=== PATIENT | male | born 1960 | race Caucasian/White ===

== ENCOUNTER 2020-09-25 12:38 | Outpatient (REF) | payer OTHER, SELFPAY | END 2020-09-25 12:39 | disposition home or self-care (01) | LOC: HO.LAB 12:38 | PROVIDERS: Visit Provider Internal Medicine | DX: Z20.828 Contact with and (suspected) exposure to other viral communicable diseases (principal) | CPT/HCPCS: C9803; U0003 ==

== ENCOUNTER 2020-10-10 11:55 | Outpatient (REF) | payer OTHER, SELFPAY ==
--- NOTE | 2020-10-10 12:00 | XR_ITS ---
EXAMINATION: XR SHOULDER, BILATERAL CLINICAL INFORMATION: Enthesopathy COMPARISON: None TECHNIQUE: 4 views of each shoulder FINDINGS: 4 views of the left shoulder do not demonstrate any evidence of acute fracture or dislocation. No calcific tendinitis. Glenohumeral joint appears unremarkable. No significant abnormality of the acromioclavicular joint is seen. There is no widening of the coracoclavicular space. 4 views of the right shoulder do not demonstrate any evidence of acute fracture or dislocation. No calcific tendinitis. There is some mild spurring about the glenohumeral joint with glenoid subchondral cyst inferiorly. No significant degenerative change of the acromioclavicular joint. No widening of the coracoclavicular space. XR/XR shoulder RT min 2V IMPRESSION: No significant bony abnormality or calcific tendinitis of the right or left shoulders.
--- NOTE | 2020-10-10 12:00 | XR_ITS ---
EXAMINATION: XR SHOULDER, BILATERAL CLINICAL INFORMATION: Enthesopathy COMPARISON: None TECHNIQUE: 4 views of each shoulder FINDINGS: 4 views of the left shoulder do not demonstrate any evidence of acute fracture or dislocation. No calcific tendinitis. Glenohumeral joint appears unremarkable. No significant abnormality of the acromioclavicular joint is seen. There is no widening of the coracoclavicular space. 4 views of the right shoulder do not demonstrate any evidence of acute fracture or dislocation. No calcific tendinitis. There is some mild spurring about the glenohumeral joint with glenoid subchondral cyst inferiorly. No significant degenerative change of the acromioclavicular joint. No widening of the coracoclavicular space. XR/XR shoulder LT min 2V IMPRESSION: No significant bony abnormality or calcific tendinitis of the right or left shoulders.
== END 2020-10-10 11:56 | disposition home or self-care (01) ==
LOC: HO.XRAY 11:55
PROVIDERS: PCP Physician Assistant; Visit Provider Physician Assistant
DX: M77.8 Other enthesopathies, not elsewhere classified (principal)
CPT/HCPCS: 73030

== ENCOUNTER 2021-07-16 07:31 | Outpatient (REF) | payer OTHER, SELFPAY ==
[2021-07-16 10:27] LABS: Hematocrit 44.1 % (42-52); Hemoglobin 14.9 g/dl (14.0-18.0); Mean Corpuscular HGB Conc 33.8 g/dl (31.0-36.0); Mean Corpuscular Hemoglobin 31.4 pg (27.0-33.0); Mean Platelet Volume 11.6 fL (9.4-12.4); Platelet Count 234 X10*3/uL (160-400); Red Blood Count 4.74 X10*6/uL (4.60-5.80); White Blood Count 5.4 X10*3/uL (4.8-10.8)
[2021-07-16 10:40] LABS: Alanine Aminotransferase 68 U/L (0-40); Albumin Level 4.3 g/dL (3.5-5.0); Alkaline Phosphatase 54 U/L (39-117); Anion Gap 10 (12-20); Aspartate Amino Transferase 41 U/L (5-37); Bilirubin Total 0.8 mg/dL (0.0-1.0); Blood Urea Nitrogen 13 mg/dL (9-16); Calcium 9.5 mg/dL (8.4-10.2); Carbon Dioxide 28 mmol/L (22-29); Chloride 106 mmol/L (96-108); Cholesterol 281 mg/dL; Estimated Glomerular Filt Rate > 60; Glucose Fasting 91 mg/dL (60-99); HDL Cholesterol 48 mg/dL; LDL Cholesterol Calculated 182 mg/dl; Potassium 4.4 mmol/L (3.3-5.1); Sodium 140 mmol/L (135-145); Total Protein 7.4 g/dL (6.5-8.0); Triglycerides 258 mg/dL
[2021-07-16 11:02] LABS: Estimated Average Glucose 108 mg/dL; Hemoglobin A1c % 5.4 %; Prostate Specific Antigen Scr 0.55 ng/mL (<0.05-4.0); TSH reflex Free T4 2.36 uIU/mL (0.32-4.0)
== END 2021-07-16 07:32 | disposition home or self-care (01) ==
LOC: HO.10HDL 07:31
PROVIDERS: Visit Provider Physician Assistant
DX: Z12.5 Encounter for screening for malignant neoplasm of prostate (principal); Z13.29 Encounter for screening for other suspected endocrine disorder; Z13.220 Encounter for screening for lipoid disorders; I10 Essential (primary) hypertension
CPT/HCPCS: 36415; 80053; 80061; 83036; 84153; 84443; 85027

== ENCOUNTER 2021-12-20 09:26 | Day surgery (SDC) | payer OTHER, SELFPAY ==
[2021-12-13 14:44] VITALS: BMI 28.3
--- NOTE | 2021-12-19 12:44 | P.CONAN_ITS ---
Documented by User: Mary Young NP 01/02/22 12:05 HPI - Anesthesia Eval Consult details Narrative: 61yo M for Colonoscopy [facility] Active Problems Active Problems: All Active Problems (Updated 12/13/21 @ 14:38 by Deb Wodo, RN) Left shoulder tendinitis (Acute) Right shoulder tendinitis (Acute) Folliculitis (Acute) Screening for diabetes mellitus (DM) (Acute) Screening for hypercholesterolemia (Acute) Screening for hypothyroidism (Acute) Annual physical exam (Acute) FHx: coronary artery disease (Acute) HLD (hyperlipidemia) (Acute) Fatty liver (Acute) Colon cancer screening (Acute) Past Medical History Medical History (Updated 12/13/21 @ 14:38 by Deb Wood RN) History of diverticulitis BOY on CPAP Family History Family History Father CHF (congestive heart failure) CVD (cardiovascular disease) Mother Diabetes Son Down syndrome Brother Myocardial infarction Surgical History Surgical History History of colonoscopy History of inguinal hernia repair History of sigmoidoscopy Social History Social History (Updated 07/18/21 @ 09:43 by Benjamin Fernandez PA-C) Housing: House Are you a primary patient care technician to a significant other at home: No Do you presently have visiting nurse or other home services: No Alcohol intake: current Alcohol intake frequency: a few times a month Alcohol type: beer Patient Tobacco Use Status: Never used Tobacco Second Hand Smoke Exposure: No Use of substances other than those prescribed or required for medical reasons: No Have you been hit, kicked, punched, or otherwise hurt by someone within the past year? If so, by whom?: No Are you DNR?: No Advance Directives: No Advance Directives Information Provided: No Advance Directives on File: No Recently lost weight without trying: No Eating poorly because of decreased appetite: No Nutrition Risks: No Nutritional Risk service: No Current occupational status: employed Current occupation: [employer] Meds Allergies Allergy/AdvReac Type Severity Reaction Status Date / Time No Known Allergies Allergy Verified 12/13/21 14:38 [No Known Allergies*] Home Medications Medication Instructions Recorded Confirmed Last Taken Type No Known Home Meds 12/13/21 12/13/21 Unknown History Exam Exam Date and Time: December 19, 2021 1244 Height,Weight and Vital Signs: Height 5 ft 9 in Weight 87.09 kg Pertinent Lab Results Pertinent Lab Results: Laboratory Tests 07/16/21 07/16/21 07:32 07:32 WBC 5.4 Hgb 14.9 Hct 44.1 Plt Count 234 Sodium 140 Potassium 4.4 Chloride 106 Carbon Dioxide 28 BUN 13 Creatinine 0.84 Assessment and Plan Assessment Anesthesia Assessment: Chart Reviewed Documented by User: Refugio Randolph MD 02/19/22 00:29 HPI - Anesthesia Eval Consult details Narrative: 61yo M for Colonoscopy jevonah s witness . would not like to accept blood products [facility] Past Medical History Medical History (Updated 12/13/21 @ 14:38 by Deb Wood RN) History of diverticulitis BOY on CPAP Family History Family History Father CHF (congestive heart failure) CVD (cardiovascular disease) Mother Diabetes Son Down syndrome Brother Myocardial infarction Family history of problems with anesthesia: No Surgical History Surgical History History of colonoscopy History of inguinal hernia repair History of sigmoidoscopy History of Problems with Anesthesia: No Social History Social History (Updated 07/18/21 @ 09:43 by Benjamin Fernandez PA-C) Housing: House Are you a primary patient care technician to a significant other at home: No Do you presently have visiting nurse or other home services: No Alcohol intake: current Alcohol intake frequency: a few times a month Alcohol type: beer Patient Tobacco Use Status: Never used Tobacco Second Hand Smoke Exposure: No Use of substances other than those prescribed or required for medical reasons: No Have you been hit, kicked, punched, or otherwise hurt by someone within the past year? If so, by whom?: No Are you DNR?: No Advance Directives: No Advance Directives Information Provided: No Advance Directives on File: No Recently lost weight without trying: No Eating poorly because of decreased appetite: No Nutrition Risks: No Nutritional Risk service: No Current occupational status: employed Current occupation: [employer] Meds Allergies Allergy/AdvReac Type Severity Reaction Status Date / Time No Known Allergies Allergy Verified 12/13/21 14:38 [No Known Allergies*] Home Medications Medication Instructions Recorded Confirmed Last Taken Type No Known Home Meds 12/13/21 12/13/21 Unknown History Exam Airway Mallampati Class: II TM Dist: >3cm Neck ROM: Full Partial: Upper Loose/Missing/Broken Teeth: Yes (Fillings , poor dentation ) Assessment and Plan Final Anesthetic Review Family History of Problems with Anesthesia: No History of Problems with Anesthesia: No NPO: Yes ASA Class: II Final Preanesthetic Review: Meds/Allgs Chart Reviewed and Anes Risks/Benef Reviewed Patient Risk: Intermediate Procedure Risk: Intermediate Anesthetic Plan Anesthetic Plan: MAC: Disposition: Standard PACU
[2021-12-20 09:38] VITALS: BP 152/90; PULSE 75; RESP 17; TEMP 36.6; O2SAT 100; BMI 27.0
[2021-12-20] MEDS: Lactated Ringers 1,000 ML 100 ML IVCONT (09:58)
--- NOTE | 2021-12-20 09:59 | MHC.SHP ---
Pre-Procedural Eval Section A Date of Service: 12/20/21 The patient is an INPATIENT: No Changes since office visit: No Cold of Flu in the past 2 weeks, No New Medical Problems, No Changes in Medication and No Patient answered all questions The History & Physical has been completed within 30 days and I have reviewed it.: Yes Section B Chief Complaint: Screening Allergies: Allergies Allergy/AdvReac Type Severity Reaction Status Date / Time No Known Allergies Allergy Verified 12/13/21 14:38 [No Known Allergies*] Plan I have reviewed the history and physical and performed a pertinent physical examination on my patient. No changes have occurred unless specified.
[2021-12-20 10:28] VITALS: BP 108/64; PULSE 62; RESP 20; TEMP 36.1; O2SAT 100
--- NOTE | 2021-12-20 10:30 | P.BOP_ITS ---
Brief Operative Note Date of Service: 12/20/21 Pre-op diagnosis: screening Post-op diagnosis: same Surgeon: Gucci Cole Anesthesia: MAC Was an Blood Tester Fowl used for this Procedure?: No Estimated blood loss (mL): 0 Pathology: none sent Condition: stable Disposition: PACU
[2021-12-20 10:43] VITALS: BP 113/77; PULSE 59; RESP 16; TEMP 36.1; O2SAT 98
--- NOTE | 2021-12-20 13:03 | OP_ITS ---
SURGEON: Gucci Cole MD INDICATIONS: Colon cancer screening. PREOPERATIVE DIAGNOSIS: POSTOPERATIVE DIAGNOSIS: PROCEDURE PERFORMED: Colonoscopy to the terminal ileum. ESTIMATED BLOOD LOSS: COMPLICATIONS: ANESTHESIA: Medications, monitored anesthesia care. ASSISTANTS: SPECIMENS: DESCRIPTION OF PROCEDURE: History and physical was performed. The risks and benefits of the procedure were explained to the patient. Informed consent was obtained. The patient was placed in the left lateral decubitus position. A digital rectal exam was performed and was found to be normal. The Olympus pediatric video colonoscope was introduced into the rectum and advanced to the cecum without difficulty. The cecum was identified by transillumination, palpation, and identification of ileocecal valve. Examination was performed. The scope was removed. He tolerated the procedure well, and was returned to the recovery area in stable condition. FINDINGS: The terminal ileum was examined and appeared normal. The visualized colonic mucosa was normal. The quality of prep was good. There was mild sigmoid diverticulosis. Retroflexed examination showed some small internal hemorrhoids. No polyps were identified. IMPRESSION: Normal colonoscopy. RECOMMENDATION: 1. Follow up as needed. 2. Repeat colonoscopy is recommended in 10 years for average risk individuals. MD RUTHIE Hurd/LAYLA / [id number]
== END 2021-12-20 11:01 | disposition home or self-care (01) ==
PROVIDERS: PCP Physician Assistant; Visit Provider Internal Medicine Gastroenterology
PROC: 0DJD8ZZ Inspection of Lower Intestinal Tract, Via Natural or Artificial Opening Endoscopic (ICD-10-PCS; CPT 45378; principal; 2021-12-20 10:40)
DX: Z12.11 Encounter for screening for malignant neoplasm of colon (principal); K57.30 Diverticulosis of large intestine without perforation or abscess without bleeding; K64.8 Other hemorrhoids; K76.0 Fatty (change of) liver, not elsewhere classified; Z87.19 Personal history of other diseases of the digestive system; G47.33 Obstructive sleep apnea (adult) (pediatric)
CPT/HCPCS: 45378

== ENCOUNTER 2022-07-20 22:04 | Emergency (ER) | payer OTHER, SELFPAY ==
--- NOTE | ~2022-07-20 | XR_ITS ---
EXAMINATION: XR CHEST CLINICAL INFORMATION: Chest pain COMPARISON: None TECHNIQUE: Frontal view of the chest was obtained. FINDINGS: The lungs are clear with no focal consolidation. No evidence of pneumothorax, pulmonary edema, or pleural effusions. The cardiomediastinal silhouette is unremarkable. No acute osseous findings. XR/XR chest 1V IMPRESSION: No acute cardiopulmonary findings.
--- NOTE | 2022-07-20 22:18 | ECG_ITS ---
Test Reason : CHEST PAIN Blood Pressure : / mmHG Vent. Rate : 068 BPM Atrial Rate : 068 BPM P-R Int : 176 ms QRS Dur : 096 ms QT Int : 376 ms P-R-T Axes : 058 034 026 degrees QTc Int : 399 ms Normal sinus rhythm Normal ECG No previous ECGs available Referred By: Generic ED Physician Electronically Signed By:BETZY ASIF
[2022-07-20 22:31] LABS: Hematocrit 39.8 % (42.0-52.0); Hemoglobin 14.2 g/dl (14.0-18.0); Mean Corpuscular HGB Conc 35.7 g/dl (31.0-36.0); Mean Corpuscular Volume 89.6 fL (80.0-98.0); Mean Platelet Volume 10.8 fL (9.4-12.4); Platelet Count 228 X10*3/uL (160-400); Red Blood Count 4.44 X10*6/uL (4.60-5.80); Red Cell Distribution Width 11.9 % (11.0-16.0); White Blood Count 9.2 X10*3/uL (4.8-10.8)
[2022-07-20 22:48] VITALS: BP 178/101; PULSE 81; RESP 13; TEMP 37.1; O2SAT 99; BMI 28.8
[2022-07-20 22:50] LABS: Alanine Aminotransferase 53 U/L (0-40); Albumin Level 4.4 g/dL (3.5-5.0); Alkaline Phosphatase 51 U/L (39-117); Anion Gap 16 (12-20); Aspartate Amino Transferase 44 U/L (5-37); Bilirubin Total 0.8 mg/dL (0.0-1.0); Blood Urea Nitrogen 17 mg/dL (9-16); Calcium 9.4 mg/dL (8.4-10.2); Carbon Dioxide 23 mmol/L (22-29); Chloride 104 mmol/L (96-108); Estimated Glomerular Filt Rate > 60; Glucose Random 93 mg/dL (60-115); Potassium 3.9 mmol/L (3.3-5.1); Sodium 139 mmol/L (135-145); Total Protein 7.2 g/dL (6.5-8.0)
[2022-07-20 22:55] LABS: Troponin-I High Sensitivity 12.8 ng/L (<3.5-35.0)
[2022-07-20 23:33] VITALS: BP 160/96; PULSE 63; RESP 10; O2SAT 99
--- NOTE | 2022-07-20 23:35 | ED.CHESTPAIN ---
HPI - Chest Pain General Chief Complaint: Chest Pain Stated Complaint: cp Time Seen by Provider: 07/20/22 23:35 Source: patient Mode of arrival: ambulatory Limitations: no limitations History of Present Illness HPI narrative: Patient otherwise very active nonsmoker history of diverticulitis no coronary artery disease history very active as such was playing ice hockey earlier for 45 minutes after playing hockey at rest patient noticed left-sided mid chest pain radiating to left or sharp and heaviness associated with weakness no diaphoresis no shortness of breath patient is still having the pain Related Data Home Medications Medication Instructions Recorded Confirmed No Known Home Meds 12/13/21 12/13/21 Allergies Allergy/AdvReac Type Severity Reaction Status Date / Time No Known Allergies Allergy Verified 12/13/21 14:38 [No Known Allergies*] Review of Systems Review of Systems: Yes all other systems are reviewed and are negative PMFSH Past Medical History Medical History History of diverticulitis BOY on CPAP Surgical History History of colonoscopy History of inguinal hernia repair History of sigmoidoscopy Family History Family History Father CHF (congestive heart failure) CVD (cardiovascular disease) Mother Diabetes Son Down syndrome Brother Myocardial infarction Social History Social History Housing: House Are you a primary infant childcare provider to a significant other at home: No Do you presently have visiting nurse or other home services: No Alcohol intake: current Alcohol intake frequency: holidays/special occasions only Alcohol type: beer Patient Tobacco Use Status: Never used Tobacco Second Hand Smoke Exposure: No Advance Directives: No Advance Directives Information Provided: Yes service: No Current occupational status: employed Current occupation: [employer] Physical Exam Vital Signs: Vital Signs: Last Vital Signs Temp 98.8 F 07/20/22 22:48 Pulse 60 07/21/22 01:21 Resp 10 L 07/20/22 23:33 BP 136/81 07/21/22 01:21 Pulse Ox 99 07/20/22 23:33 O2 Del Method 07/20/22 23:33 BMI result Body Mass Index 28.8 Course Reevaluation(s) Reevaluation #1: Patient on nitroglycerin drip feeling slightly better and the chest pain but still having the left arm pain case discussed with Interventional Cardiology Dr. Sánchez will take the patient to cardiac cardiovascular lab director for STEMI patient has received Brilinta 180 mg aspirin 162 mg heparin 5000 units and is now on nitroglycerin drip Time: 01:44 MDM - Chest Pain MDM Narrative Medical decision making narrative: Patient with no known coronary artery disease comes with left-sided chest pain in the left arm clinically cardiac with EKG showing T inversion inferior lead with hyperacute T-wave changes initial EKG with last EKG showing normalization of the changes delta troponin increase from 12.8-98.5. Patient is still having chest pain poor response of nitropaste will start patient on nitroglycerin drip heparin bolus was given will give patient p.o. Brilinta case discussed with Dr. Reeder city alder[place] advised to transfer to [facility] case discussed Dr. Sánchez intervention city alderman had BS [facility] would like to wait for 15 minutes after starting nitroglycerin drip Lab Data Attestation: I reviewed the patient's lab results. Result diagrams: 07/20/22 22:25 07/20/22 22:25 Labs: Lab Results 07/20/22 07/20/22 07/20/22 Range/Units 22:25 22:25 22:25 WBC 9.2 (4.8-10.8) X10*3/uL RBC 4.44 L (4.60-5.80) X10*6/uL Hgb 14.2 (14.0-18.0) g/dl Hct 39.8 L (42.0-52.0) % MCV 89.6 (80.0-98.0) fL MCH 32.0 (27.0-33.0) pg MCHC 35.7 (31.0-36.0) g/dl RDW 11.9 (11.0-16.0) % Plt Count 228 (160-400) X10*3/uL MPV 10.8 (9.4-12.4) fL Absolute Nucleated RBC 0.000 (0.0-0.012) X10*3/uL Nucleated RBC % (auto) 0.0 (0.0-0.2) /100WBC PT (10.0-13.1) SEC INR (0.9-1.1) APTT (26.0-36.4) SEC D-Dimer High Sensitivty NG/ML Sodium 139 (135-145) mmol/L Potassium 3.9 (3.3-5.1) mmol/L Chloride 104 (96-108) mmol/L Carbon Dioxide 23 (22-29) mmol/L Anion Gap 16 (12-20) BUN 17 H (9-16) mg/dL Creatinine 0.98 (0.5-1.4) mg/dL Estim Creat Clear Calc TNP Estimated GFR > 60 Random Glucose 93 (60-115) mg/dL Calcium 9.4 (8.4-10.2) mg/dL Total Bilirubin 0.8 (0.0-1.0) mg/dL AST 44 H (5-37) U/L ALT 53 H (0-40) U/L Alkaline Phosphatase 51 (39-117) U/L Troponin I High Sens 12.8 (<3.5-35.0) ng/L B-Natriuretic Peptide (<100) pg/mL Total Protein 7.2 (6.5-8.0) g/dL Albumin 4.4 (3.5-5.0) g/dL COVID-19 ([facility]) (Negative) COVID-19 Clin Com 07/21/22 07/21/22 07/21/22 Range/Units 00:03 00:03 00:03 WBC (4.8-10.8) X10*3/uL RBC (4.60-5.80) X10*6/uL Hgb (14.0-18.0) g/dl Hct (42.0-52.0) % MCV (80.0-98.0) fL MCH (27.0-33.0) pg MCHC (31.0-36.0) g/dl RDW (11.0-16.0) % Plt Count (160-400) X10*3/uL MPV (9.4-12.4) fL Absolute Nucleated RBC (0.0-0.012) X10*3/uL Nucleated RBC % (auto) (0.0-0.2) /100WBC PT 12.4 (10.0-13.1) SEC INR 1.1 (0.9-1.1) APTT 22.9 L (26.0-36.4) SEC D-Dimer High Sensitivty < 150 NG/ML Sodium (135-145) mmol/L Potassium (3.3-5.1) mmol/L Chloride (96-108) mmol/L Carbon Dioxide (22-29) mmol/L Anion Gap (12-20) BUN (9-16) mg/dL Creatinine (0.5-1.4) mg/dL Estim Creat Clear Calc Estimated GFR Random Glucose (60-115) mg/dL Calcium (8.4-10.2) mg/dL Total Bilirubin (0.0-1.0) mg/dL AST (5-37) U/L ALT (0-40) U/L Alkaline Phosphatase (39-117) U/L Troponin I High Sens 98.5 H D (<3.5-35.0) ng/L B-Natriuretic Peptide 11 (<100) pg/mL Total Protein (6.5-8.0) g/dL Albumin (3.5-5.0) g/dL COVID-19 ([facility]) (Negative) COVID-19 Clin Com 07/21/22 Range/Units 00:03 WBC (4.8-10.8) X10*3/uL RBC (4.60-5.80) X10*6/uL Hgb (14.0-18.0) g/dl Hct (42.0-52.0) % MCV (80.0-98.0) fL MCH (27.0-33.0) pg MCHC (31.0-36.0) g/dl RDW (11.0-16.0) % Plt Count (160-400) X10*3/uL MPV (9.4-12.4) fL Absolute Nucleated RBC (0.0-0.012) X10*3/uL Nucleated RBC % (auto) (0.0-0.2) /100WBC PT (10.0-13.1) SEC INR (0.9-1.1) APTT (26.0-36.4) SEC D-Dimer High Sensitivty NG/ML Sodium (135-145) mmol/L Potassium (3.3-5.1) mmol/L Chloride (96-108) mmol/L Carbon Dioxide (22-29) mmol/L Anion Gap (12-20) BUN (9-16) mg/dL Creatinine (0.5-1.4) mg/dL Estim Creat Clear Calc Estimated GFR Random Glucose (60-115) mg/dL Calcium (8.4-10.2) mg/dL Total Bilirubin (0.0-1.0) mg/dL AST (5-37) U/L ALT (0-40) U/L Alkaline Phosphatase (39-117) U/L Troponin I High Sens (<3.5-35.0) ng/L B-Natriuretic Peptide (<100) pg/mL Total Protein (6.5-8.0) g/dL Albumin (3.5-5.0) g/dL COVID-19 ([facility]) Negative (Negative) COVID-19 Clin Com See Note ECG Data ECG #1: Attestation: I personally reviewed and interpreted this ECG as follows: Interpretation: Normal sinus rhythm heart rate 75 beats per minute normal interval normal axis hyperacute T-wave changes 1 2 aVL and precordial leads with T inversion in lead 3 and AVF Critical Care Time Critical Care Time Critical Care Time: Yes Total Critical Care Time: 65 Attestation: I spent 65 minutes of critical care, with interventions, assessments, speaking to patient, consultants, and family. Discharge Plan Discharge Clinical Impression: ST elevation (STEMI) myocardial infarction Patient Disposition: [facility] Transfer Details: To cardiac catheterization lab at [facility] Dr Sánchez Prescriptions: No Action No Known Home Meds
[2022-07-20 23:41] VITALS: PULSE 65
[2022-07-21] MEDS: Aspirin 81 MG TAB.CHEW 162 MG PO (00:14)
[2022-07-21] MEDS: Nitroglycerin 2 % Oint 1 GM Packet 1 INCH TRANSDERMA (00:15)
[2022-07-21 00:30] LABS: D Dimer High Sensitivity < 150 NG/ML
[2022-07-21 00:32] LABS: COVID-19 Test Negative (Negative)
[2022-07-21 00:37] LABS: B Type Natriuretic Peptide 11 pg/mL (<100); Troponin-I High Sensitivity 98.5 ng/L (<3.5-35.0)
[2022-07-21 00:39] LABS: INTERNATIONAL NORM RATIO 1.1 (0.9-1.1); Prothrombin Time 12.4 SEC (10.0-13.1)
[2022-07-21 00:51] LABS: Partial Thromboplastin Time 22.9 SEC (26.0-36.4)
--- NOTE | 2022-07-21 00:55 | ECG_ITS ---
Test Reason : CHEST PAIN Blood Pressure : / mmHG Vent. Rate : 055 BPM Atrial Rate : 055 BPM P-R Int : 176 ms QRS Dur : 086 ms QT Int : 404 ms P-R-T Axes : 047 017 045 degrees QTc Int : 386 ms Sinus bradycardia Otherwise normal ECG When compared with ECG of 20-JUL-2022 23:33, Heart rate has decreased Referred By: Luc Cardenas Electronically Signed By:BETZY ASIF
[2022-07-21] MEDS: Heparin Sodium,Porcine 5,000 UNIT/ML VIAL 5000 UNIT IVPUSH (01:07)
[2022-07-21 01:21] VITALS: BP 136/81; PULSE 60
[2022-07-21] MEDS: Nitroglycerin/D5W 100 MG/250 ML INFUS..BTL IVCONT (01:21)
[2022-07-21] MEDS: Ticagrelor 90 MG TABLET 180 MG PO (01:22)
--- NOTE | 2022-07-21 01:59 | PC.NURSE ---
This [facility] called the stores laborer for at 0108.At 0127 received a call back from .Awaiting for a second call back. At 0140 accepted patient to [facility]'s Aircraft Shipping Checker. At 0147 Action called for a stat ALS transfer to stores laborer per . Ems arrived at 0158 for transport. ELDER aware
--- NOTE | 2022-07-21 02:09 | PC.NURSE ---
Called [facility] Emergency Specialist at 0209, left a callback number for the nurse. Report given to EMS and they are loading him on their stretcher at this moment.
--- NOTE | 2022-07-21 02:34 | PC.NURSE ---
61yo male came in to ER with chest pain after playing ice hockey. Pt reported 10/10 pain in his chest and shooting down his left arm. Pt presented A&Ox4, GCS 15, skin warm and dry. No difficulty breathing and positive perfusion to all extremities. We gave nitro and 2 baby aspirin. Chest pain decreased to 7/10. Pt EKG's and Chest XRay came back unremarkable but troponin came back at 98. Dr Lidia called [facility] and pt scheduled to be transfered via ambulance. Pt got heparin, brilinta, and started on a nitro drip. Titration information: Increase by 20mcg/min if SBP >160 01:21 136/81 01:36 139/89 01:51 124/61 I did not increase the rate, per protocol. I called report to [facility] laborer steel handling and gave report to Ghazala FRIEDMAN. EMS came to pick pt up, report was given and pt was transferred and secured to their stretcher. EMS left with the pt to [facility].
== END 2022-07-21 02:15 | disposition short-term general hospital (02) ==
PROVIDERS: Emergency Provider Internal Medicine; PCP Physician Assistant
DX: I21.3 ST elevation (STEMI) myocardial infarction of unspecified site (principal); R07.89 Other chest pain; R06.02 Shortness of breath; Z20.822 Contact with and (suspected) exposure to COVID-19; Z79.899 Other long term (current) drug therapy
CPT/HCPCS: 36415; 71045; 80053; 83880; 84484; 85027; 85379; 85610; 85730; 87635; 93005; 99285

== ENCOUNTER 2022-11-28 08:05 | Emergency (ER) | payer OTHER, SELFPAY ==
--- NOTE | 2022-11-28 | ECG_ITS ---
Test Reason : dizziness Blood Pressure : / mmHG Vent. Rate : 053 BPM Atrial Rate : 053 BPM P-R Int : 176 ms QRS Dur : 084 ms QT Int : 412 ms P-R-T Axes : 044 036 093 degrees QTc Int : 386 ms Sinus bradycardia Nonspecific T wave abnormality Abnormal ECG When compared with ECG of 21-JUL-2022 00:47, T wave inversion now evident in Anterior leads Referred By: Generic ED Physician Electronically Signed By:GIUSEPPE MCKEON MD
--- NOTE | ~2022-11-28 | XR_ITS ---
EXAMINATION: XR CHEST CLINICAL INFORMATION: Left chest pain. Lightheadedness COMPARISON: 07/21/2022 TECHNIQUE: 2 views of the chest were obtained. FINDINGS: There is a suggestion of subtle coarse increased interstitial markings. No focal consolidation or mass. No pleural effusion or pneumothorax. Normal heart size. Regional skeleton intact. XR/XR chest 2V IMPRESSION: Subtle coarse increased interstitial markings. This is a equivocal finding but could be seen in the setting of underlying bronchitis or interstitial pneumonitis, less likely mild pulmonary edema.
[2022-11-28 08:18] VITALS: BP 167/97; BP 183/71; PULSE 61; PULSE 98; RESP 18; TEMP 36.8; O2SAT 98; O2SAT 99; BMI 28.8
[2022-11-28 08:22] VITALS: BP 167/97; PULSE 55; RESP 12; TEMP 36.8; O2SAT 100
--- OUTSIDE RECORDS SUMMARY | 2022-11-28 08:33 | XMS_ITS ---
:1960 Author Organization [facility] Address [address] [place] [address] Care Team Providers Name Role Phone Gucci Cole Jr Unavailable Unavailable PROBLEMS Type Condition ICD9-CM Code VLV34-RY Code Onset Condition SNO MED Code Dates Status Problem Colon cancer Z12.11 Active 7268302 04 screening Problem Fatty liver K76.0 Active [id number] ALLERGIES No Known Allergies ENCOUNTERS Encounter Location Date Diagnosis [facility] Outpatient [address] [facility] 11 Dec, 2021 [facility] [place] [id number] Z12.11 [place] [address] [facility] [address] [place] [id number] [place] [address], [place] [facility] [address] [place] [address] Z12.11 and Fatty liver [address] K76.0 IMMUNIZATIONS Vaccine Route Administration Date Status Influenza Unknown Nov 27, 2021 Administered SOCIAL HISTORY Qualifiers Date Never Smoker REASON FOR REFERRAL FUNCTIONAL STATUS PLAN OF CARE Activity Details Future/Pending Procedure COLONOSCOPY [id number] VITAL SIGNS Weight 194 lbs 2021-11-27 Height 69 in 2021-11-27 BMI 28.65 kg/m2 2021-11-27 Temperature 97.7 degrees Fahrenheit 2021-11-27 Blood pressure systolic 000 mm Hg 2021-11-27 Blood pressure diastolic 00 mm Hg 2021-11-27 MEDICATIONS Unknown Medications PROCEDURES Procedure Date Ordered Result Body Site DOC RSN FOR NOT SCREEN/REC F/U HBP Nov 27, 2021 Pt scrn tbco id as non user Nov 27, 2021 DOC MEDS VERIFIED W/PT OR RE Nov 27, 2021 COLORECTAL CA SCREEN DOC REV Nov 27, 2021 DIAGNOSTIC COLONOSCOPY Dec 20, 2021 RESULTS No Results REASON FOR VISIT COLON SCREENING, screening, please lock 11-27-2021 office note, Patient presents today for consultation Insurance Providers [facility] Member Patient Patient Patient Patient Patient Subscriber Subscriber Subscriber Group Insurance Plan Plan Plan Plan ID Relationship Address Phone Name Date of ID Name Date of No Type Insurance Insurance Insurance Coverage to Subscriber Address Phone Name Dates [facility] [phone] [place] [id number] [facility] [id number] [facility] Plan [id number]
--- OUTSIDE RECORDS SUMMARY | 2022-11-28 08:33 | XMS_ITS | Continuity of Care Document ---
:1960 Author Organization [facility] Address [address] [place] [id number] Care Team Providers Name Role Phone Benjamin San Primary Care Physician Encounter [facility] [place] Date(s): 07/28/22 - 07/31/[address] [address] Encounter Diagnosis Non-ST elevation (NSTEMI) myocardial infarction (Final) - Discharge Disposition: A-D/C Home Attending Physician: Farhat Locke MD Admitting Physician: Farhat Locke MD Referring Physician: Farhat Locke MD Allergies, Adverse Reactions, Alerts No Known Allergies Medications aspirin 81 mg oral delayed release tablet = 81 mg, By Mouth, Daily, # 30 tablet, 0 Refills, Maintenance, 07/22/22 11:42:00 EDT, EC Tablet, [facility], Partial fill upon patient request if the prescription is for a schedule II opioid drug., 175, cm, 07/21/22 4:46:00 EDT, Height,... Start Date: 07/22/22 Status: Orderedcarvedilol 3.125 mg oral tablet 3.125 mg, 1, tablet, By Mouth, 2 times a day, # 60 tablet, Refills 0, Tot. Refills 0, Maintenance, 07/22/22 11:42:00 EDT, Route to Pharmacy Electronically, [facility], Partial fill upon patient request if the prescription is for a schedu... Start Date: 07/22/22 Status: Orderedclopidogrel 75 mg oral tablet 75 mg, 1, tablet, By Mouth, Daily, # 30 tablet, Refills 0, Tot. Refills 0, Maintenance, 07/22/22 12:40:00 EDT, Route to Pharmacy Electronically, [facility], Partial fill upon patient request if the prescription is for a schedule II opioi... Start Date: 07/22/22 Status: Orderedlosartan 25 mg oral tablet 25 mg, 1, tablet, By Mouth, Daily, # 30 tablet, Refills 0, Tot. Refills 0, Maintenance, 07/22/22 12:39:00 EDT, Route to Pharmacy Electronically, [facility], Partial fill upon patient request if the prescription is for a schedule II opioi... Start Date: 07/22/22 Status: Orderedpravastatin 20 mg oral tablet 20 mg, 1, tablet, By Mouth, Daily, # 30 tablet, Refills 0, Tot. Refills 0, Maintenance, 07/22/22 11:42:00 EDT, Route to Pharmacy Electronically, [facility], Partial fill upon patient request if the prescription is for a schedule II opioi... Start Date: 07/22/22 Status: Ordered Problem List Condition Effective Dates Status Health Status Informant Diverticulitis(Confirmed) Active Hyperlipidemia(Confirmed) Active NSTEMI (non-ST elevated myocardial Active infarction)(Confirmed) Social History Social History Type Response Smoking Status Never (less than 100 in life time) entered on: 07/21/22 Sex Care Team PersonnelName: Benjamin San Address: [address] [place] [id number]
--- OUTSIDE RECORDS SUMMARY | 2022-11-28 08:33 | XMS_ITS | Continuity of Care Document ---
:1960 Author Organization [facility] Address [address] [place] [id number]- Care Team Providers Name Role Phone Benjamin San Primary Care Physician Encounter [facility] Date(s): 07/21/22 - 07/22/[address] [address] Discharge Disposition: A-D/C Home Attending Physician: Farhat Locke MD Admitting Physician: Farhat Locke MD Referring Physician: Farhat Locke MD Allergies, Adverse Reactions, Alerts No Known Allergies Medications aspirin 81 mg oral delayed release tablet = 81 mg, By Mouth, Daily, # 30 tablet, 0 Refills, Maintenance, 07/22/22 11:42:00 EDT, EC Tablet, [facility], Partial fill upon patient request if the prescription is for a schedule II opioid drug., 175, cm, 07/21/22 4:46:00 EDT, Height,... Start Date: 07/22/22 Status: Orderedcarvedilol 3.125 mg oral tablet 3.125 mg, Tablet, By Mouth, 07/22/22 9:00:00 EDT Start Date: 07/22/22 Stop Date: 07/22/22 Status: Completedcarvedilol 3.125 mg oral tablet 3.125 mg, Tablet, By Mouth, 07/21/22 10:44:00 EDT Start Date: 07/21/22 Stop Date: 07/21/22 Status: Completedcarvedilol 3.125 mg oral tablet 3.125 mg, Tablet, By Mouth, 07/21/22 21:00:00 EDT Start Date: 07/21/22 Stop Date: 07/21/22 Status: Completedcarvedilol 3.125 mg oral tablet 3.125 mg, 1, tablet, By Mouth, 2 times a day, # 60 tablet, Refills 0, Tot. Refills 0, Maintenance, 07/22/22 11:42:00 EDT, Route to Pharmacy Electronically, [facility], Partial fill upon patient request if the prescription is for a schedu... Start Date: 07/22/22 Status: Orderedclopidogrel 75 mg oral tablet 75 mg, 1, tablet, By Mouth, Daily, # 30 tablet, Refills 0, Tot. Refills 0, Maintenance, 07/22/22 12:40:00 EDT, Route to Pharmacy Electronically, [facility], Partial fill upon patient request if the prescription is for a schedule II opioi... Start Date: 07/22/22 Status: Orderedlosartan 25 mg oral tablet 25 mg, 1, tablet, By Mouth, Daily, # 30 tablet, Refills 0, Tot. Refills 0, Maintenance, 07/22/22 12:39:00 EDT, Route to Pharmacy Electronically, [facility], Partial fill upon patient request if the prescription is for a schedule II opioi... Start Date: 07/22/22 Status: Orderedpravastatin 20 mg oral tablet 20 mg, 1, tablet, By Mouth, Daily, # 30 tablet, Refills 0, Tot. Refills 0, Maintenance, 07/22/22 11:42:00 EDT, Route to Pharmacy Electronically, [facility] 3, Partial fill upon patient request if the prescription is for a schedule II opioi... Start Date: 07/22/22 Status: Ordered Problem List Condition Effective Dates Status Health Status Informant Diverticulitis(Confirmed) Active Hyperlipidemia(Confirmed) Active NSTEMI (non-ST elevated myocardial Active infarction)(Confirmed) Vital Signs Most recent to oldest 1 2 3 [Reference Range]: Height 175 cm (07/21/22 4:46 AM) Weight 88.1 kg 88.7 kg (07/22/22 5:05 AM) (07/21/22 4:46 AM) Oxygen Saturation [94-100 %] 98 % 95 % 97 % (07/22/22 1:00 PM) (07/22/22 12:00 PM) (07/22/22 11 :00 AM) Pulse Rate [55-90 bpm] 68 bpm 71 bpm 65 bpm (07/22/22 7:41 AM) (07/21/22 7:32 PM) (07/21/22 11: 15 AM) Body Mass Index [18.5-24.99] 28.96 *H* (07/21/22 4:46 AM) Blood Pressure [90-138/55-84 126/88 mm Hg 117/79 mm Hg 122 /82 mm Hg mm Hg] (07/22/22 1:00 PM) (07/22/22 12:00 PM) (07/22/22 11 :00 AM) Respiratory Rate [16-30 21 br/min 20 br/min 20 br/mi n br/min] (07/22/22 1:00 PM) (07/22/22 12:00 PM) (07/22/22 11 :00 AM) Temperature [96.8-100.4 98.1 DegF 98.2 DegF 98.3 Deg F DegF] (07/22/22 12:00 PM) (07/22/22 8:00 AM) (07/22/22 6: 00 AM) Mode of Delivery (Oxygen) Room air Room air Room a ir (07/22/22 1:00 PM) (07/22/22 12:00 PM) (07/22/22 11 :00 AM) Blood pressure sites Arm, left Arm, left Arm, left (07/22/22 8:00 AM) (07/22/22 6:00 AM) (07/22/22 5:0 0 AM) Temperature Route Oral Oral Oral (07/22/22 12:00 PM) (07/22/22 8:00 AM) (07/22/22 6: 00 AM) Dry Weight 88.7 kg (07/21/22 4:46 AM) Weight Obtained Via Bed scale Bed scale (07/22/22 5:05 AM) (07/21/22 4:46 AM) Social History Social History Type Response Smoking Status Never (less than 100 in life time) entered on: 07/21/22 Sex Care Team PersonnelName: Benjamin San Address: [address] [place] [address]-
--- NOTE | 2022-11-28 09:09 | ED_ITS ---
HPI - General Adult General Chief complaint: Dizziness Stated complaint: DIZZY,HYPERTENSION Time Seen by Provider: 11/28/22 08:44 Source: patient Mode of arrival: ambulatory Limitations: no limitations History of Present Illness HPI narrative: 62-year-old male presents with lightheadedness. Symptoms started approximately 715 this morning while sitting at the breakfast bar. Symptoms are moderate to severe in nature. He denied any vertiginous symptoms such as sensation of movement. He did describe a slight twinge of pain in the left axillary area. It lasted quite briefly. Was not associated with exertion. Patient did report having feeling of difficulty ambulating secondary to his lightheadedness but the night any symptoms of ataxia. Denies any focal neurologic deficits such as unilateral weakness or difficulty speaking. Patient does have a history of coronary artery disease with 2 stents placed in July of 2022. Prior to that he had been on no medications. His symptoms at that time or substernal chest pressure with dental pain. He denies any symptoms like that at this time. He follows up at [facility] but he does not know the name of his objects conservator. Patient is unaware of what his baseline heart rate is. Otherwise, patient denies any fevers, chills, sweats. He was unclear if there are any relieving or exacerbating symptoms. He is on Plavix and aspirin. Denied any dark or melanotic stools. Related Data Home Medications Medication Instructions Recorded Confirmed No Known Home Meds 12/13/21 12/13/21 Allergies Allergy/AdvReac Type Severity Reaction Status Date / Time No Known Allergies Allergy Verified 11/28/22 08:24 [No Known Allergies*] Review of Systems Review of Systems: Yes all other systems are reviewed and are negative Constitutional: Constitutional: Reports no additional constitutional complaints Eyes: Eyes: Reports as per HPI ENT: Reports system reviewed and no additional complaints, except as documented and Reports dizziness Cardiovascular: Cardiovascular: Reports chest pain and Reports lightheadedness Respiratory: Respiratory: Reports no additional respiratory complaints Gastrointestinal: Gastrointestinal: Reports no additional gastrointestinal complaints Genitourinary: Genitourinary: Reports no additional male genitourinary complaints Musculoskeletal: Musculoskeletal: Reports no additional musculoskeletal complaints Integumentary/Breasts: Skin/Breast: Reports system reviewed and no additional complaints, except as docu Neurologic: Reports system reviewed and no additional complaints, except as documented and Reports dizziness Psychiatric: Psychiatric: Reports no additional psychiatric complaints Endocrine: Endocrine: Reports no additional endocrine complaints Hematologic/Lymphatic: Hematologic/Lymphatic: Reports no additional hematologic/lymphatic complaints [facility] Past Medical History Attestation statement: The following information was validated with the patient. (Coronary artery disease with stents) Source: old records reviewed (Primary care 2020 annual exam) Medical History History of diverticulitis BOY on CPAP Surgical History History of colonoscopy History of inguinal hernia repair History of sigmoidoscopy Family History Family History Father CHF (congestive heart failure) CVD (cardiovascular disease) Mother Diabetes Son Down syndrome Brother Myocardial infarction Social History Social History Housing: House Are you a primary healthcare insurance sales agent to a significant other at home: No Do you presently have visiting nurse or other home services: No Alcohol intake: current Alcohol intake frequency: holidays/special occasions only Alcohol type: beer Patient Tobacco Use Status: Never used Tobacco Smoked in Last 30 Days: No Second Hand Smoke Exposure: No Use of substances other than those prescribed or required for medical reasons: No Advance Directives: No service: No Current occupational status: employed 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 Physical Exam ED Vital Signs: Vital Signs - 24 hr 11/28/22 08:18 11/28/22 08:22 Temperature 98.3 F 98.3 F Pulse Rate 61 55 Respiratory Rate 18 12 Blood Pressure 167/97 H 167/97 H Pulse Oximetry 99 100 Oxygen Delivery Method Room Air Room Air BMI result Body Mass Index 28.8 Const General: cooperative, healthy appearing, comfortable, no acute distress, well developed, alert, awake and Physically active Orientation/consciousness: patient oriented x3 HENMT Head: Yes normal to inspection Eyes General: appearance normal, both eyes and all related structures Neck Neck: Yes no JVD Cardio Jugular venous distension: no JVD Rate: regular rate and bradycardic Rhythm: regular rhythm Heart sounds: no gallops, no murmurs and no rubs Bruits: no abdominal aortic bruits GI Palpation (GI): No Abdominal aortic bruit present, Soft to palpation, nontender, no guarding and hepatosplenomegaly present Skin General skin exam: no rashes or lesions noted Neuro General: patient oriented x3, moves all extremities, no focal motor deficits and CN's II-XI intact bilaterally Course Course Course Narrative: 62-year-old male with history of coronary artery disease with stents x2 presents with lightheadedness. Symptoms have mostly resolved at this time. Patient denies any significant chest pain although he described a twinge in his left axillary area. This was different than how he presented for his coronary event in 2021. Rest of his exam was nonfocal. Cardiac auscultation was normal. He is bradycardic. EKG revealed no acute ischemia or evidence of cardiac dysrhythmia. There are nonspecific changes noted but no evidence of acute ischemic changes. Patient will obtain orthostatic vital signs, chest x-ray, EKG which was discussed above. Lab work will also be obtained. I will obtain a 2nd set of cardiac enzymes to make sure that this is not a cardiac event. Patient m ay benefit from outpatient follow-up with Holter or event monitoring. This plan has been discussed with the patient. Disposition is pending for workup. Reevaluation(s) Reevaluation #1: Spoke with Dr. Landry, patient's objects conservator. Assuming 2nd set of cardiac enzymes are negative, patient is safe for discharge. We will stop his carvedilol and increase his losartan to 50 mg daily. Close follow-up will be made. He did request a cholesterol level be drawn while in the emergency department. We will attempt to accommodate this request. Time: 11:19 Reevaluation #2: Reviewed 2nd set of troponins which were negative. Patient is currently asymptomatic. We discussed care plan which included stopping carvedilol increasing his losartan 50 mg daily. Will return for any concerning symptoms. Time: 11:44 Medications Administered Discontinued Medications Generic Name Dose Route Start Last Admin Trade Name Freq PRN Reason Stop Dose Admin Sodium Chloride 1,000 mls @ 999 mls/hr 11/28/22 09:15 11/28/22 10:40 Ns IV 11/28/22 10:15 Infused .Q1H1M LINA Infusion Medical Decision Making Medical Decision Making [facility] Narrative: 62-year-old male with history of coronary artery disease with stents placed in 2021 presents with lightheadedness. Symptoms are pretty much dissipated at this time. Examination was unremarkable with exception of bradycardia. EKG revealed sinus bradycardia with nonspecific T-wave changes but no evidence of acute ischemia. Patient will receive IV fluids, orthostatic vital signs, laboratory analysis and chest x-ray. Differential Diagnosis Differential Diagnoses: The differential diagnosis associated with the presentation includes (Acute coronary syndrome, cardiac dysrhythmia, bradycardia, dehydration, electrolyte abnormality) Symptomatic bradycardia Admission/Observation Consideration of admission/observation: Escalation of care including admission/observation considered (Assuming lab work in cardiac consultation is normal, patient will likely be discharged with close follow-up.) Consult Healthcare Provider Management of the patient was discussed with: Marketing Representative (Dr. Landry, cardiology) Lab Data MDM Lab Attestation statement: I reviewed the patient's lab results. 11/28/22 10:22 11/28/22 10:22 Labs: Lab Results 11/28/22 11/28/22 11/28/22 Range/Units 09:57 10:22 10:22 WBC 5.9 (4.8-10.8) X10*3/uL RBC 4.73 (4.60-5.80) X10*6/uL Hgb 15.1 (14.0-18.0) g/dl Hct 43.0 (42.0-52.0) % MCV 90.9 (80.0-98.0) fL MCH 31.9 (27.0-33.0) pg MCHC 35.1 (31.0-36.0) g/dl RDW 11.7 (11.0-16.0) % Plt Count 216 (160-400) X10*3/uL MPV 10.3 (9.4-12.4) fL Immature Gran % (Auto) 0.3 (0.0-0.4) % Neut % (Auto) 59.1 (45-73) % Lymph % (Auto) 29.7 (20-40) % Burt % (Auto) 7.1 (2-11) % Eos % (Auto) 3.1 (0-4) % Baso % (Auto) 0.7 (0-2) % Lymph # (Auto) 1.8 (1.2-4.9) X10*3/uL Burt # (Auto) 0.4 (0.1-1.2) X10*3/uL Eos # (Auto) 0.2 (0.0-0.4) X10*3/uL Baso # (Auto) 0.0 (0.0-0.2) X10*3/uL Abs Immat Gran (auto) 0.02 (0.00-0.03) X10*3/uL Absolute Neuts (auto) 3.5 (2.0-8.3) x10*3/uL Absolute Nucleated RBC 0.000 (0.0-0.012) X10*3/uL Nucleated RBC % (auto) 0.0 (0.0-0.2) /100WBC Sodium 138 (135-145) mmol/L Potassium 4.1 (3.3-5.1) mmol/L Chloride 103 (96-108) mmol/L Carbon Dioxide 29 (22-29) mmol/L Anion Gap 10 L (12-20) BUN 11 (9-16) mg/dL Creatinine 0.89 (0.5-1.4) mg/dL Estim Creat Clear Calc 95.9 Estimated GFR > 60 Random Glucose 93 (60-115) mg/dL Calcium 9.5 (8.4-10.2) mg/dL Troponin I High Sens 7.4 (<3.5-35.0) ng/L 11/28/22 Range/Units 10:59 WBC (4.8-10.8) X10*3/uL RBC (4.60-5.80) X10*6/uL Hgb (14.0-18.0) g/dl Hct (42.0-52.0) % MCV (80.0-98.0) fL MCH (27.0-33.0) pg MCHC (31.0-36.0) g/dl RDW (11.0-16.0) % Plt Count (160-400) X10*3/uL MPV (9.4-12.4) fL Immature Gran % (Auto) (0.0-0.4) % Neut % (Auto) (45-73) % Lymph % (Auto) (20-40) % Burt % (Auto) (2-11) % Eos % (Auto) (0-4) % Baso % (Auto) (0-2) % Lymph # (Auto) (1.2-4.9) X10*3/uL Burt # (Auto) (0.1-1.2) X10*3/uL Eos # (Auto) (0.0-0.4) X10*3/uL Baso # (Auto) (0.0-0.2) X10*3/uL Abs Immat Gran (auto) (0.00-0.03) X10*3/uL Absolute Neuts (auto) (2.0-8.3) x10*3/uL Absolute Nucleated RBC (0.0-0.012) X10*3/uL Nucleated RBC % (auto) (0.0-0.2) /100WBC Sodium (135-145) mmol/L Potassium (3.3-5.1) mmol/L Chloride (96-108) mmol/L Carbon Dioxide (22-29) mmol/L Anion Gap (12-20) BUN (9-16) mg/dL Creatinine (0.5-1.4) mg/dL Estim Creat Clear Calc Estimated GFR Random Glucose (60-115) mg/dL Calcium (8.4-10.2) mg/dL Troponin I High Sens 6.3 (<3.5-35.0) ng/L Independent Interpretation I performed an independent interpretation of an: EKG (Sinus bradycardia heart rate 53, normal intervals, nonspecific T-wave flattening seen diffusely. No acute ST elevations or depressions) and Plain X-Ray (Chest x-ray, no acute cardiopulmonary disease) External Record Review External record reviewed: Prior outpatient labs Tests considered The following testing was considered but not selected: CT angiogram to rule out PE. He is not hypoxic, sinus tachycardia. There is no evidence of an S1 Q3 T3 on EKG. Patient is low risk for PE and is currently on aspirin and Plavix, dual platelet therapy. Prescription Management I considered prescription management with: Other (Cessation of carvedilol, increase losartan) Chronic Conditions Patient?s care impacted by: Other (Coronary artery disease) Core Measures Measure exclusions: not indicated Discharge Plan Discharge Clinical Impression: Lightheadedness, Personal history of coronary artery disease, Bradycardia, sinus Patient Disposition: Home, Self-Care Instructions: Bradycardia (ED), Lightheadedness (ED) Additional Instructions: At this time, recommending that you stop taking carvedilol. We are also recommending that you increase the losartan to 50 mg daily. He did not hear back from her objects conservator by early next week, please contact them in order to make an appropriate appointment. Prescriptions: No Action No Known Home Meds Referrals: Surya Landry MD [Physician] - 5 days
[2022-11-28] MEDS: 0.9 % Sodium Chloride 1,000 ML 999 ML IV (09:38)
[2022-11-28 10:25] LABS: Troponin-I High Sensitivity 7.4 ng/L (<3.5-35.0)
[2022-11-28 10:25] LABS: MANUAL DIFF FLAG NO
[2022-11-28 10:26] LABS: Basophils Percent Auto 0.7 % (0-2); Eosinophils Absolute Auto 0.2 X10*3/uL (0.0-0.4); Eosinophils Percent Auto 3.1 % (0-4); Hemoglobin 15.1 g/dl (14.0-18.0); Imm Gran Abs Auto 0.02 X10*3/uL (0.00-0.03); Imm Gran Pct Auto 0.3 % (0.0-0.4); Lymphocytes Absolute Auto 1.8 X10*3/uL (1.2-4.9); Lymphocytes Percent Auto 29.7 % (20-40); Mean Corpuscular HGB Conc 35.1 g/dl (31.0-36.0); Mean Corpuscular Hemoglobin 31.9 pg (27.0-33.0); Mean Corpuscular Volume 90.9 fL (80.0-98.0); Mean Platelet Volume 10.3 fL (9.4-12.4); Monocytes Absolute Auto 0.4 X10*3/uL (0.1-1.2); Monocytes Percent Auto 7.1 % (2-11); Neutrophils Absolute Auto 3.5 x10*3/uL (2.0-8.3); Neutrophils Percent Auto 59.1 % (45-73); Platelet Count 216 X10*3/uL (160-400); Red Blood Count 4.73 X10*6/uL (4.60-5.80); Red Cell Distribution Width 11.7 % (11.0-16.0); White Blood Count 5.9 X10*3/uL (4.8-10.8)
--- NOTE | 2022-11-28 10:33 | MHC.STROKE ---
0800 EMS PRE-NOTIFIED NO STROKE ALERT, C/O DIZZINESS, OFF BALANCE, WOKE AT 0430 (HIS NORMAL WAKE UP TIME). AT 0715 HE DEVELOPED SUDDEN ONSET LIGHTHEADED, DIZZINESS AND HE WAS UNABLE TO STAND UP. HE CHECKED HIS BP AND IT WAS SBP 170'S. DISCUSSED CASE WITH PROVIDER ?[facility], HE IS BRADYCARDIC 50'S, HE STARTED A DIFFERENT MED IN , RECENT WA IN . HE WAS ABLE TO SIT ON THE EDGE OF THE BED AND AMBULATE 100FT+, HE USED THE BATHROOM, VOIDED LARGE AMOUNT. NIHSS = 0, PASSED NURSING SWALLOW SCREEN. I PROVIDED EDUCATION AND EXPLAINED THE PLAN OF CARE. I ALSO ANSWERED ALL OF HIS QUESTIONS.
[2022-11-28 10:45] LABS: Anion Gap 10 (12-20); Blood Urea Nitrogen 11 mg/dL (9-16); Calcium 9.5 mg/dL (8.4-10.2); Carbon Dioxide 29 mmol/L (22-29); Chloride 103 mmol/L (96-108); Creatinine Clr Calc Pharmacy 95.9; Estimated Glomerular Filt Rate > 60; Glucose Random 93 mg/dL (60-115); Potassium 4.1 mmol/L (3.3-5.1); Sodium 138 mmol/L (135-145)
[2022-11-28 11:28] LABS: Troponin-I High Sensitivity 6.3 ng/L (<3.5-35.0)
[2022-11-28 11:45] LABS: Cholesterol 243 mg/dL
[2022-11-28 11:55] VITALS: BP 170/88; PULSE 53; RESP 16; TEMP 36.7; O2SAT 99
== END 2022-11-28 12:00 | disposition home or self-care (01) ==
PROVIDERS: Emergency Provider Emergency Medicine; PCP Physician Assistant
DX: R42 Dizziness and giddiness (principal); I49.8 Other specified cardiac arrhythmias; Z86.79 Personal history of other diseases of the circulatory system
CPT/HCPCS: 36415; 71046; 80048; 82465; 84484; 85025; 93005; 96360; 99284; 99285

== ENCOUNTER 2023-01-09 11:11 | Outpatient (REF) | payer OTHER, SELFPAY ==
[2023-01-09 15:09] LABS: C Reactive Protein 0.13 mg/dL (< or = 0.50)
[2023-01-09 15:45] LABS: Erythrocyte Sedimentation Rate 2 MM/HR (0-15)
== END 2023-01-09 11:12 | disposition home or self-care (01) ==
LOC: HO.10HDL 11:11
PROVIDERS: Visit Provider Physician Assistant Medical
DX: R07.9 Chest pain, unspecified (principal)
CPT/HCPCS: 36415; 85652; 86140

== ENCOUNTER 2023-02-05 07:27 | Outpatient (REF) | payer OTHER, SELFPAY ==
--- NOTE | ~2023-02-05 | CT_ITS ---
EXAMINATION: CT CHEST WITHOUT CONTRAST CLINICAL INFORMATION: Shortness of breath COMPARISON: Previous chest x-ray November 2022 TECHNIQUE: Multidetector volumetric CT imaging of the chest was done. Axial MIP volume rendering provided. Sagittal and coronal reformatted images were obtained. This CT examination was performed using dose optimization techniques as appropriate, variously including the following: *Automated exposure control *Adjustment of mA and/or kV according to patient size (this includes techniques or standardized protocols for targeted exams where dose is matched to indication/reason for exam; i.e. extremities or head) *Use of iterative reconstruction technique DLP: 230 mGy-cm FINDINGS: LUNGS: 3 x 10 mm peripheral or subpleural right middle lobe nodule adjacent to the minor fissure suggestive of a subpleural lymph node axial image 3:15 series 5. 3 mm right lower lobe nodule axial image 318 series 5. This is triangular in shape and adjacent to an accessory fissure probably representing intrapulmonary lymph node. 2 x 6 mm peripheral or subpleural right lower lobe nodule adjacent to the major fissure axial image 319 series 5 probably representing a subpleural lymph node. 2 mm peripheral or subpleural left upper lobe nodule axial image 323 series 5 probably representing a subpleural lymph node. 2 mm peripheral left lower lobe nodule axial image 342 series 5. 2 mm left lower lobe nodule axial image 538 series 5. 3 mm peripheral or subpleural left lower lobe nodule probably representing a subpleural lymph node axial image 546 series 5. 3 small 2 to 3 mm adjacent peripheral or subpleural left lower lobe nodules adjacent to the pleural fissure probably representing subpleural lymph nodes axial image 294 series 5. The lungs are otherwise clear. No endobronchial or endotracheal lesion. No evidence of emphysema fissure lung disease or bronchiectasis. MEDIASTINUM: The mediastinum is normal. CORONARY ARTERY CALCIFICATION: Severe PLEURA: There is no pleural effusion. No pleural mass or thickening. AXILLA: No lymphadenopathy. UPPER ABDOMEN: Probable small stone in the upper pole of the left kidney. OSSEOUS STRUCTURES: Degenerative changes of the spine. CT/CT chest wo IV con IMPRESSION: Small pulmonary nodules, the majority of which likely represent peripheral or subpleural or intrapulmonary lymph nodes. According to the UPDATED 2017 Fleischner Society recommendations, the advised follow-up imaging for less than 6 mm solid nodule: Low risk, no chest CT follow-up and high risk, optional chest CT follow-up in one year. Severe coronary artery calcification. Probable small left renal stone. Fleischner guidelines were followed.
== END 2023-02-05 07:28 | disposition home or self-care (01) ==
LOC: HO.CT 07:27
PROVIDERS: PCP Physician Assistant; Visit Provider Nurse Practitioner Family
DX: R06.02 Shortness of breath (principal)
CPT/HCPCS: 71250

== ENCOUNTER 2023-02-09 08:57 | Outpatient (REF) | payer OTHER, SELFPAY ==
--- NOTE | 2023-02-09 14:01 | PFT_ITS ---
FLOWS: 1. FEV1 134% of predicted at 4.64 L. 2. FVC 109% of predicted at 5.46 L. 3. FEV1 to FVC ratio of 0.85. 4. No bronchodilator response. LUNG VOLUMES: 1. Total lung capacity 107% of predicted at 7.31 L. 2. Residual volume 76% of predicted at 1.69 L. 3. Slow vital capacity 122% of predicted at 5.62 L. 4. Expiratory reserve volume 75% of predicted at 1.00 L. 5. Diffusion capacity is normal. IMPRESSION: No obstructive or restrictive ventilatory defect. No bronchodilatory response. Essentially normal pulmonary function test. Dawson Reyes MD AP/MODL / [id number]
== END 2023-02-09 08:58 | disposition home or self-care (01) ==
LOC: HO.RESP 08:57
PROVIDERS: PCP Nurse Practitioner Family; Visit Provider Nurse Practitioner Family
DX: R06.02 Shortness of breath (principal)
CPT/HCPCS: 94060; 94727; 94729

== ENCOUNTER 2023-03-04 08:26 | Outpatient (REF) | payer OTHER, SELFPAY ==
--- NOTE | ~2023-03-04 | US_ITS ---
EXAMINATION: US ABDOMEN LIMITED CLINICAL INFORMATION: Fatty change of liver, not elsewhere classified. COMPARISON: CT abdomen and pelvis 05/08/2020. Ultrasound abdomen complete 06/11/2017. TECHNIQUE: Real-time imaging of the right upper quadrant abdominal viscera. Technically limited study secondary to bowel gas. FINDINGS: PANCREAS: The body the pancreas is normal. The head and tail are not well visualized due to bowel gas. LIVER: Liver echotexture is slightly increased. The liver contour is normal. There is a 9 x 7 x 7 mm cyst in the left lobe of the liver. This is similar to previous CT scan. No other focal liver lesion. There is no intrahepatic biliary duct dilatation seen. GALLBLADDER: Normal. The gallbladder is physiologically distended without evidence of stones, sludge, polyps, wall thickening or pericholecystic fluid. COMMON BILE DUCT: Not well visualized. RIGHT KIDNEY: Normal. No hydronephrosis. No renal calculi or focal parenchymal lesions. The kidney measures 9.8 cm in maximum dimension. FREE FLUID: None. US/US abdomen limited IMPRESSION: Slightly echogenic liver probably representing fatty infiltration. Small liver cyst. Limited visualization of the pancreas and common bile duct.
== END 2023-03-04 08:27 | disposition home or self-care (01) ==
LOC: HO.US 08:26
PROVIDERS: PCP Physician Assistant; Visit Provider Physician Assistant
DX: K76.0 Fatty (change of) liver, not elsewhere classified (principal)
CPT/HCPCS: 76705

== ENCOUNTER 2023-03-04 10:06 | Outpatient (REF) | payer OTHER, SELFPAY ==
[2023-03-04 10:39] LABS: Hematocrit 41.5 % (42.0-52.0); Hemoglobin 14.2 g/dl (14.0-18.0); Mean Corpuscular HGB Conc 34.2 g/dl (31.0-36.0); Mean Corpuscular Hemoglobin 32.2 pg (27.0-33.0); Mean Corpuscular Volume 94.1 fL (80.0-98.0); Mean Platelet Volume 11.4 fL (9.4-12.4); Platelet Count 225 X10*3/uL (160-400); Red Blood Count 4.41 X10*6/uL (4.60-5.80); Red Cell Distribution Width 11.9 % (11.0-16.0); White Blood Count 7.3 X10*3/uL (4.8-10.8)
[2023-03-04 11:16] LABS: Alanine Aminotransferase 34 U/L (0-40); Albumin Level 4.2 g/dL (3.5-5.0); Alkaline Phosphatase 62 U/L (39-117); Anion Gap 11 (12-20); Aspartate Amino Transferase 35 U/L (5-37); Blood Urea Nitrogen 14 mg/dL (9-16); Calcium 9.3 mg/dL (8.4-10.2); Carbon Dioxide 27 mmol/L (22-29); Chloride 107 mmol/L (96-108); Cholesterol 156 mg/dL; Estimated Glomerular Filt Rate > 60; Glucose Fasting 83 mg/dL (60-99); HDL Cholesterol 36 mg/dL; LDL Cholesterol Calculated 108 mg/dl; Magnesium 2.1 mg/dL (1.6-2.6); Potassium 4.2 mmol/L (3.3-5.1); Sodium 141 mmol/L (135-145); Total Protein 6.7 g/dL (6.5-8.0); Triglycerides 63 mg/dL
[2023-03-04 11:33] LABS: Prostate Specific Antigen Scr 0.51 ng/mL (<0.05-4.0); TSH reflex Free T4 1.55 uIU/mL (0.32-4.0)
== END 2023-03-04 10:07 | disposition home or self-care (01) ==
LOC: HO.10HDL 10:06
PROVIDERS: Visit Provider Physician Assistant
DX: Z12.5 Encounter for screening for malignant neoplasm of prostate (principal); R10.11 Right upper quadrant pain; I25.10 Atherosclerotic heart disease of native coronary artery without angina pectoris
CPT/HCPCS: 36415; 80053; 80061; 83735; 84153; 84443; 85027

== ENCOUNTER 2023-05-18 14:57 | Outpatient (AMB) | payer OTHER, SELFPAY ==
[2023-05-18 15:04] VITALS: BP 128/70; PULSE 78; O2SAT 98; BMI 27.7
--- NOTE | 2023-05-18 15:04 | MHC.OFFVIS ---
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 The patient is a 62-year-old gentleman who was recently diagnosed with acute coronary syndrome requiring PCI with 2 stents. The patient recovered well after his intervention. Still, complaint of dyspnea on exertion and some heaviness in the chest area. Mild in severity. As part of the workup the patient had a chest x-ray that was nondiagnostic. Ultimately had a CT scan of the chest which was personally by me back in January 2023. He has multiple pulmonary nodules noted largest measuring 6 mm in size. Upon evaluation of the CT scan the nodules appear to be well-circumscribed some hazy they are bilateral. No significant lymphadenopathy or any concerning features with the nodules. No evidence of any emphysema or parenchymal lung disease. Patient also underwent pulmonary function studies which I personally reviewed demonstrating no evidence of any obstructive nor restrictive ventilatory defects. He is starting to exercise more this time. He could not participate in cardiac rehab because of some delays. Ultimately he is wondering if these medications could be resulting in symptoms. I do agree with that this time that could be playing a role her she will be starting exercise regimen he will be coming off some of the medication the next few months. If his symptoms persist can always call socan further address symptoms. Otherwise will have him follow-up in January of [address] scan. [facility] Medical History (Updated 05/19/23 @ 07:49 by Sharad Lala MD) History of diverticulitis BOY on CPAP Surgical History History of colonoscopy History of inguinal hernia repair History of sigmoidoscopy Family History Father CHF (congestive heart failure) CVD (cardiovascular disease) Mother Diabetes Son Down syndrome Brother Myocardial infarction Social History (Updated 02/24/23 @ 16:27 by Benjamin Fernandez PA-C) Housing: House Are you a primary ocular care aide to a significant other at home: No Do you presently have visiting nurse or other home services: No Alcohol intake: current Alcohol intake frequency: holidays/special occasions only Alcohol type: beer Patient Tobacco Use Status: Former Tobacco user Quit Date: 1989 e-Cigarette/Vaping Use: Never Used Second Hand Smoke Exposure: No service: No Current occupational status: employed 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 Cognitive needs: No Hearing needs: No Vision needs: No Review of Systems Const Denies body aches, Denies chills, Denies excessive sweating, Denies fatigue, Denies fever(s) and Denies headache(s) Eyes Denies blurry vision ENT Denies dysphagia, Denies vertigo, Denies dizziness, Denies headache(s), Denies hearing loss and Denies tinnitus Card Denies chest pain, Denies chest pain with activity, Denies syncope, Denies irregular heart rhythm, Denies dyspnea and Reports dyspnea on exertion Resp Denies chest congestion, Denies cough, Denies hemoptysis, Denies dyspnea, Reports dyspnea on exertion and Denies wheezing GI Denies abdominal pain, Denies melena, Denies hematochezia, Denies coffee ground emesis, Denies dysphagia, Denies diarrhea, Denies nausea and Denies vomiting Denies difficulty urinating, Denies dysuria, Denies urinary frequency, Denies urinary hesitancy and Denies urinary urgency Musc Denies arthralgias, Denies limited range of motion, Denies muscle cramps and Denies muscle weakness Skin/Breast Denies rash and Denies skin ulcer Neuro Denies Abnormal speech present, Denies vertigo, Denies dizziness, Denies syncope, Denies headache(s), Denies memory loss and Denies seizure-like activity Psych Denies anxiety, Denies depression, Denies memory loss, Denies panic attacks and Denies paranoia Endo Denies excessive sweating, Denies fatigue, Denies flushing, Denies polydipsia and Denies polyuria Aller/Immun Denies wheezing Physical Exam Vital Signs: Last Vital Signs Pulse 78 05/18/23 15:04 BP 128/70 05/18/23 15:04 Pulse Ox 98 05/18/23 15:04 Oxygen Delivery Method Room Air 05/18/23 15:04 BMI result Body Mass Index 27.7 Const General: comfortable HEENT Head: Yes normocephalic Neck Neck: Yes supple Chest Chest palpation & inspection: normal inspection of the chest Resp Effort & Inspection: normal respiratory effort Auscultation: clear to auscultation bilaterally Cardio Rate: regular rate Rhythm: regular rhythm Heart sounds: S1 normal heart sound present and S2 normal heart sound present GI Palpation (GI): Soft to palpation Skin General skin exam: no rashes or lesions noted Neuro Speech: No Abnormal speech present Extrem General: Yes no clubbing, cyanosis or edema Assessment & Plan Assessment & Plan (1) Pulmonary nodules: Code(s): R91.8 - Other nonspecific abnormal finding of lung field (2) BOY on CPAP: Code(s): G47.33 - Obstructive sleep apnea (adult) (pediatric); Z99.89 - Dependence on other enabling machines and devices (3) SOB (shortness of breath): Code(s): R06.02 - Shortness of breath Plan start exercise regimen CT chest 01/2024 No need for inhalers at this time F/U after his CT chest Coding Level of Care Code New Pt Level 4 (82476) Diagnoses Pulmonary nodules R91.8 BOY on CPAP G47.33; Z99.89 SOB (shortness of breath) R06.02 Time Spent (min) 37
== END 2023-05-18 15:38 | disposition home or self-care (01) ==
PROVIDERS: PCP Physician Assistant; Visit Provider Hospitalist
DX: R91.8 Other nonspecific abnormal finding of lung field (principal); G47.33 Obstructive sleep apnea (adult) (pediatric); Z99.89 Dependence on other enabling machines and devices; R06.02 Shortness of breath
CPT/HCPCS: 99204

== ENCOUNTER → 2023-05-18 14:57 | Outpatient (BNVA) | payer OTHER, SELFPAY | PROVIDERS: PCP Physician Assistant; Visit Provider Hospitalist | DX: R91.8 Other nonspecific abnormal finding of lung field (principal); G47.33 Obstructive sleep apnea (adult) (pediatric); R06.02 Shortness of breath; Z99.89 Dependence on other enabling machines and devices | CPT/HCPCS: 99202 ==

== ENCOUNTER 2023-09-08 07:25 | Outpatient (REF) | payer OTHER, SELFPAY ==
[2023-09-08 10:47] LABS: Hematocrit 44.4 % (42.0-52.0); Hemoglobin 15.1 g/dl (14.0-18.0); Mean Corpuscular Hemoglobin 31.7 pg (27.0-33.0); Mean Corpuscular Volume 93.1 fL (80.0-98.0); Mean Platelet Volume 11.6 fL (9.4-12.4); Platelet Count 229 X10*3/uL (160-400); Red Blood Count 4.77 X10*6/uL (4.60-5.80); Red Cell Distribution Width 11.9 % (11.0-16.0); White Blood Count 5.7 X10*3/uL (4.8-10.8)
[2023-09-08 11:02] LABS: Alanine Aminotransferase 22 U/L (0-40); Albumin Level 4.4 g/dL (3.5-5.0); Alkaline Phosphatase 53 U/L (39-117); Anion Gap 14 (12-20); Aspartate Amino Transferase 28 U/L (5-37); Bilirubin Total 0.4 mg/dL (0.0-1.0); Blood Urea Nitrogen 15 mg/dL (9-16); Carbon Dioxide 27 mmol/L (22-29); Chloride 104 mmol/L (96-108); Cholesterol 216 mg/dL (<200); Estimated Glomerular Filt Rate > 60; Glucose Fasting 96 mg/dL (60-99); HDL Cholesterol 38 mg/dL (>40); LDL Cholesterol Calculated 146 mg/dL (<100); Potassium 4.5 mmol/L (3.3-5.1); Sodium 140 mmol/L (135-145); Total Protein 7.5 g/dL (6.5-8.0); Triglycerides 164 mg/dL (<150)
== END 2023-09-08 07:26 | disposition home or self-care (01) ==
LOC: HO.10HDL 07:25
PROVIDERS: Visit Provider Physician Assistant
DX: I25.10 Atherosclerotic heart disease of native coronary artery without angina pectoris (principal)
CPT/HCPCS: 36415; 80053; 80061; 85027

== ENCOUNTER 2024-01-26 08:24 | Outpatient (AMB) | payer OTHER, SELFPAY ==
[2024-01-26 08:33] VITALS: BP 128/70; PULSE 70; O2SAT 99; BMI 28.9
--- NOTE | 2024-01-26 08:33 | MHC.OFFVIS ---
Intake Vital Signs 01/26/24 08:33 Height 5 ft 9 in Weight 196 lb BMI 28.9 BP 128/70 Blood Pressure Location Lt brachial Position Sitting Pulse 70 Pulse Source Pulse Oximeter Pulse Oximetry (%) 99 Oxygen Delivery Method Room Air Intake Visit Reasons: pulm nodule Quality Director Required: No Allergies No Known Allergies [No Known Allergies*] Allergy (Verified 01/26/24 08:35) HPI HPI Comments History of Present Illness Details The patient is a 63-year-old gentleman who was recently diagnosed with acute coronary syndrome requiring PCI with 2 stents. The patient recovered well after his intervention. Still, complaint of dyspnea on exertion and some heaviness in the chest area. Mild in severity. As part of the workup the patient had a chest x-ray that was nondiagnostic. Ultimately had a CT scan of the chest which was personally by me back in January 2023. He has multiple pulmonary nodules noted largest measuring 6 mm in size. Upon evaluation of the CT scan the nodules appear to be well-circumscribed some hazy they are bilateral. No significant lymphadenopathy or any concerning features with the nodules. No evidence of any emphysema or parenchymal lung disease. Patient also underwent pulmonary function studies which I personally reviewed demonstrating no evidence of any obstructive nor restrictive ventilatory defects. He is starting to exercise more this time. He could not participate in cardiac rehab because of some delays. Ultimately he is wondering if these medications could be resulting in symptoms. I do agree with that this time that could be playing a role her she will be starting exercise regimen he will be coming off some of the medication the next few months. If his symptoms persist can always call socan further address symptoms. Otherwise will have him follow-up in January of [address] scan. 01/26/2024 the patient is here for a pulmonary follow-up visit. Overall the patient has been doing well. Continues to have some dyspnea on exertion. Heaviness in the chest area. [id number] severity. Is tends to be intermittent. He is trying to exercise more I do believe this will help. We did look at his last PFTs from 2022 and there were reassuring. His last CT scan was back from 01/26/2023 demonstrating pulmonary nodules largest 1 measuring 10 mm in size. He was supposed to have a CT scan before this visit but he did not have 1. Will make sure that he has 1 and I will call him with the results. In the meantime he continues uses CPAP at nighttime. CPAP therapy continues to be affecting beneficial. Will go ahead and change his mask and he is getting irritation to of the nasal bridge because of the fullface mask. He does not tolerate the nasal pillows or the nasal mask because of air leakage through his mouth. I did have an F30 I mask available that he liked although only had a small size. I do believe medium probably a better size for him. The patient will continue to get supplies through his [employer]. Will follow-up year's time. [facility] Medical History (Updated 09/29/23 @ 17:13 by Benjamin Fernandez PA-C) BOY on CPAP History of diverticulitis Surgical History History of colonoscopy History of sigmoidoscopy History of inguinal hernia repair Family History Father CHF (congestive heart failure) CVD (cardiovascular disease) Mother Diabetes Son Down syndrome Brother Myocardial infarction Social History (Updated 02/24/23 @ 16:27 by Benjamin Fernandez PA-C) Housing: House Are you a primary neonatal intensive care unit nurse to a significant other at home: No Do you presently have visiting nurse or other home services: No Alcohol intake: current Alcohol intake frequency: holidays/special occasions only Alcohol type: beer Patient Tobacco Use Status: Former Tobacco user Quit Date: 1989 e-Cigarette/Vaping Use: Never Used Second Hand Smoke Exposure: No service: No Current occupational status: employed 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 [employer] Cognitive needs: No Hearing needs: No Vision needs: No Review of Systems Const Denies body aches, Denies chills, Denies excessive sweating, Denies fatigue, Denies fever(s) and Denies headache(s) Eyes Denies blurry vision ENT Denies dysphagia, Denies vertigo, Denies dizziness, Denies headache(s), Denies hearing loss and Denies tinnitus Card Denies chest pain, Denies chest pain with activity, Denies syncope, Denies irregular heart rhythm, Denies dyspnea and Reports dyspnea on exertion Resp Denies chest congestion, Denies cough, Denies hemoptysis, Denies dyspnea, Reports dyspnea on exertion and Denies wheezing GI Denies abdominal pain, Denies melena, Denies hematochezia, Denies coffee ground emesis, Denies dysphagia, Denies diarrhea, Denies nausea and Denies vomiting Denies difficulty urinating, Denies dysuria, Denies urinary frequency, Denies urinary hesitancy and Denies urinary urgency Musc Denies arthralgias, Denies limited range of motion, Denies muscle cramps and Denies muscle weakness Skin/Breast Denies rash and Denies skin ulcer Neuro Denies Abnormal speech present, Denies vertigo, Denies dizziness, Denies syncope, Denies headache(s), Denies memory loss and Denies seizure-like activity Psych Denies anxiety, Denies depression, Denies memory loss, Denies panic attacks and Denies paranoia Endo Denies excessive sweating, Denies fatigue, Denies flushing, Denies polydipsia and Denies polyuria Aller/Immun Denies wheezing Physical Exam Vital Signs: Last Vital Signs Pulse 70 01/26/24 08:33 BP 128/70 01/26/24 08:33 Pulse Ox 99 01/26/24 08:33 Oxygen Delivery Method Room Air 01/26/24 08:33 BMI result Body Mass Index 28.9 Const General: comfortable HEENT Head: Yes normocephalic Neck Neck: Yes supple Chest Chest palpation & inspection: normal inspection of the chest Resp Effort & Inspection: normal respiratory effort Auscultation: clear to auscultation bilaterally Cardio Rate: regular rate Rhythm: regular rhythm Heart sounds: S1 normal heart sound present and S2 normal heart sound present GI Palpation (GI): Soft to palpation Skin General skin exam: no rashes or lesions noted Neuro Speech: No Abnormal speech present Extrem General: Yes no clubbing, cyanosis or edema Assessment & Plan Assessment & Plan (1) Pulmonary nodules: Code(s): R91.8 - Other nonspecific abnormal finding of lung field (2) BOY on CPAP: Code(s): G47.33 - Obstructive sleep apnea (adult) (pediatric); Z99.89 - Dependence on other enabling machines and devices (3) SOB (shortness of breath): Code(s): R06.02 - Shortness of breath Plan continue exercise regimen CT chest 01/2024 continue APAP ([employer]) needs a new mask F30i medium No need for inhalers at this time F/U 1 year Orders: Orders CT chest wo IV con Today R91.8 - Other nonspecific abnormal finding of lung field Coding Level of Care Code Est Pt Level 4 (47459) Diagnoses Pulmonary nodules R91.8 BOY on CPAP G47.33; Z99.89 SOB (shortness of breath) R06.02 Time Spent (min) 18
== END 2024-01-26 08:54 | disposition home or self-care (01) ==
PROVIDERS: PCP Physician Assistant; Visit Provider Hospitalist
DX: R91.8 Other nonspecific abnormal finding of lung field (principal); G47.33 Obstructive sleep apnea (adult) (pediatric); Z99.89 Dependence on other enabling machines and devices; R06.02 Shortness of breath
CPT/HCPCS: 99214

== ENCOUNTER → 2024-01-26 08:24 | Outpatient (BNVA) | payer OTHER, SELFPAY | PROVIDERS: PCP Physician Assistant; Visit Provider Hospitalist | DX: R91.8 Other nonspecific abnormal finding of lung field (principal); R06.02 Shortness of breath; G47.33 Obstructive sleep apnea (adult) (pediatric); Z99.89 Dependence on other enabling machines and devices | CPT/HCPCS: 99212 ==

== ENCOUNTER 2024-02-25 07:29 | Outpatient (REF) | payer OTHER, SELFPAY ==
--- NOTE | ~2024-02-25 | CT_ITS ---
EXAMINATION: CT CHEST WITHOUT CONTRAST CLINICAL INFORMATION: Follow-up pulmonary nodules. COMPARISON: CT chest dated 02/05/2023; abdominal ultrasound dated 03/04/2023. TECHNIQUE: Multidetector volumetric CT imaging of the chest was done. Axial MIP volume rendering provided. Sagittal and coronal reformatted images were obtained. This CT examination was performed using dose optimization techniques as appropriate, variously including the following: *Automated exposure control *Adjustment of mA and/or kV according to patient size (this includes techniques or standardized protocols for targeted exams where dose is matched to indication/reason for exam; i.e. 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 LUNGS: Anteriorly within the right middle lobe (5:286), a 3 mm noncalcified nodule is seen. A benign, calcified granuloma is seen medially within the right middle lobe (5:294). Within the superior segment of the right lower lobe (5:187), a 3 mm noncalcified nodule is seen. Within the anterior basal segment of the right lower lobe (5:246), a 4 mm noncalcified nodule is seen. There are additional benign fissural lymph nodes. There are several scattered 1-2 mm noncalcified left lung nodules. These nodules are unchanged from 02/05/2023. No new nodule, mass, infiltrate or groundglass opacity is seen. There is no generalized increase in peripheral interlobular septal markings. No bleb or bullous formation is seen. No generalized small airway thickening is seen. The central airways appear patent. MEDIASTINUM: The mediastinum is normal. CORONARY ARTERY CALCIFICATION: Moderate. PLEURA: There is no pleural effusion. No pleural mass or thickening. AXILLA: No lymphadenopathy. UPPER ABDOMEN: A 1.0 cm left hepatic lobe cyst is redemonstrated (3:54), consistent with prior ultrasound findings. The adrenal glands are unremarkable. OSSEOUS STRUCTURES: There is multi-level thoracolumbar spondylosis. No acute or aggressive osseous finding is noted. CT/CT chest wo IV con IMPRESSION: 1. There is a continued stable appearance from 02/06/2020 of nonspecific, noncalcified bilateral pulmonary nodules, the largest within the anterior basal segment of the right lower lobe measuring 4 mm. According to the UPDATED 2017 Fleischner Society recommendations, the advised follow-up imaging for solid nodules < 6 mm is: LOW RISK PATIENT: No routine follow-up. HIGH RISK PATIENT: Optional CT at 12 months. 2. No pulmonary mass, infiltrate or groundglass opacity is seen. 3. There is no thoracic lymphadenopathy or pleural effusion. 4. There are moderate coronary artery atherosclerotic calcifications. 5. No acute or aggressive osseous finding is noted. Fleischner guidelines were followed.
== END 2024-02-25 07:30 | disposition home or self-care (01) ==
LOC: HO.CT 07:29
PROVIDERS: PCP Physician Assistant; Visit Provider Hospitalist
DX: R91.8 Other nonspecific abnormal finding of lung field (principal)
CPT/HCPCS: 71250

== ENCOUNTER 2024-12-06 09:53 | Outpatient (AMB) | payer OTHER, SELFPAY ==
--- NOTE | 2024-12-06 10:01 | MHC.PC.OV ---
Vital Signs 12/06/24 10:03 12/06/24 10:09 Height 5 ft 9 in Weight 196 lb 4 oz BMI 29.0 BP 140/82 H 136/74 Blood Pressure Location Lt brachial Lt brachial Position Sitting Sitting Pulse 70 Pulse Source Pulse Oximeter Temp 96.9 F Temp Source Skin Pulse Oximetry (%) 98 Oxygen Delivery Method Room Air Intake Visit Reasons: cataract surgery 12/19 and left eye 01/02 Intake Note: Patient is here for a Pre-op for Cataract scheduled with Dr Dowling on 12/19/24 right eye and 01/02/25 left eye. Inventory Planner Required: No Producer Assistant: Not Required per policy Accompanied by: Self / Same As Patient Allergies No Known Allergies [No Known Allergies*] Allergy (Verified 12/06/24 10:32) Medication List - Last Reconciled 12/06/24 by GIAN Padilla No Known Home Meds Tobacco use date assessed: 12/06/24 Dental Screening Dental Screen Date: 12/06/24 Did you have a dental visit in the last 12 months?: Yes Did you have a dental problem in the last 6 months where you did not have access to dental care?: No Was dental information given to patient?: Patient has dentist HPI cataract surgery 12/19 and left eye 01/02 HPI Details The patient is a 64 y/o male who presents today for preop clearance. Patient of GRADY Hong Surgery: Right eye cataract surgery on 12/19/24, follow by left eye cataract surgery on 01/02/25 The was diagnosed with cataract of bilateral eyes with increased glare with driving at night Surgeon/location: Dr. Mejia at [facility], [place], [place] Anesthesia: Local Patient denies history of perioperative hypothermia or blood clotting disorders. He is not on any anticoagulation. Medical history significant for CAD, NSTEMI 07/2022-cardiac cathater at the time showing RCA diseas requiring 2 drug-eluting stents to the RCA. HLD-per chart review-the patient took himself off his losarton and pravastatin due to muscle aches and brain fogginess. The patient was also placed on aspirin and clopidogrel due to stent placement. The reports that he is currently not taking any medication. It is unclear when these medications were stopped. The patient does not have recent blood work in chart. Will order blood work to attach to note as part of the evaluation. The patient first blood pressure check was slightly elevated. He reports that he has been stressed lately due to his son's recent diagnosis. Rechecked blood pressure was 136/74. [facility] Medical History BOY on CPAP History of diverticulitis Surgical History History of colonoscopy History of sigmoidoscopy History of inguinal hernia repair Family History Father CHF (congestive heart failure) CVD (cardiovascular disease) Mother Diabetes Son Down syndrome Brother Myocardial infarction Other Mental health disorder Social History Housing: House Are you a primary specialist wound care to a significant other at home: No Do you presently have visiting nurse or other home services: No Alcohol intake: current Alcohol intake frequency: holidays/special occasions only Alcohol type: beer Patient Tobacco Use Status: Former Tobacco user e-Cigarette/Vaping Use: Never Used Second Hand Smoke Exposure: Yes service: No Current occupational status: employed 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 1. Little interest or pleasure in doing things: not at all 2. Feeling down, depressed, or hopeless: not at all 3. Trouble falling or staying asleep, or sleeping too much: not at all 4. Feeling tired or having little energy: not at all 5. Poor appetite or overeating: not at all 6. Feeling bad about yourself - or that you are a failure or have let yourself or your family down: not at all 7. Trouble concentrating on things, such as reading the newspaper or watching television: not at all 8. Moving or speaking so slowly that other people could have noticed. Or the opposite - being so fidgety or restless that you have been moving around a lot more than usual: not at all 9. Thoughts that you would be better off or of hurting yourself in some way: not at all Total score: 0 Depression Screening Interpretation: Negative Depression Screening Done: Yes 52225 - PHQ-9 Billing: Yes Source: Developed by Drs. Delbert Allan, Barbara Gamboa, Isai Cisneros and colleagues, with an educational nicolette from [employer]. Thrive Questionnaire Date Thrive assessed: 12/06/24 I am a: Patient What is your living situation today?: I have a steady place to live Within the past 12 months, did the food you bought not last and you didn't have the money to get more?: Never true Within the past 12 months, did you worry whether your food would run out before you got money to buy more?: Never true Do you have trouble paying for medicines?: No Do you have trouble getting transportation to medical appointments?: No Do you have trouble paying your heating and electricity bill?: No Do you have trouble taking care of your child, family member or friend?: No Do you have trouble with day-to-day activities such as bathing, preparing meals, shopping, managing finances, etc.?: No Are you currently unemployed and looking for a job?: No Are you interested in more education?: No Please select the resources that you would like help with: None Currently or been in a relationship where the following occur: No concerns reported THRIVE Score: 0 AUDIT C Alcohol Use Questionnaire (AUDIT-C) 1. How often do you have a drink containing alcohol?: Monthly or less 2. How many drinks containing alcohol do you have on a typical day when you are drinking?: 1 or 2 3. How often do you have six or more drinks on one occasion?: Never Total Score: 1 DURAN-7 AMB Questionnaire DURAN-7 Date DURAN - 7 assessed: 12/06/24 Feeling nervous, anxious, or on edge: 0 = Not at all Not being able to stop or control worryin = Not at all Worrying too much about different things: 0 = Not at all Trouble relaxin = Not at all Being so restless that it is hard to sit still: 0 = Not at all Becoming easily annoyed or irritable: 0 = Not at all Feeling afraid as if something awful might happen: 0 = Not at all Total DURAN-7 score (0-4 normal; 5-9 mild; 10-14 moderate; 15-21 severe): 0 Source: Developed by Drs. Delbert Allan, Barbara Gamboa, Isai Cisneros and colleagues, with an educational nicolette from [employer]. DURAN-7 Assessment Billing DURAN-7 Assessment Tool: DURAN-7 Assessment 08760 Review of Systems Const Details: Denies chills, Denies fatigue, Denies fever(s), Denies headache(s) and Denies weakness HEENT Denies change in vision, Denies dizziness, Denies headache(s), Denies hearing loss, Denies nasal congestion, Denies sinus pain, Denies sinus pressure and Denies sore throat Card Denies chest pain, Denies lightheadedness, Denies dyspnea and Denies other (palpitations) Resp Denies cough, Denies dyspnea and Denies wheezing GI Denies abdominal pain, Denies melena, Denies hematochezia, Denies change in bowel habits, Denies dyspepsia and Denies nausea Denies hematuria and Denies dysuria Musc Denies abnormal gait, Denies myalgias, Denies arthralgias, Denies numbness and Denies tingling Skin/Breast Denies rash, Denies unusual bruising and Denies wounds Neuro Denies abnormal gait, Denies dizziness, Denies headache(s), Denies memory loss, Denies numbness, Denies Sensory deficit (Neuro), Denies tingling and Denies weakness Psych Denies anxiety, Denies depression and Denies memory loss Endo Denies cold intolerance, Denies fatigue, Denies heat intolerance, Denies polydipsia and Denies polyuria Bang/Lymph Denies easy bleeding and Denies easy bruising Aller/Immun Denies wheezing Physical exam (Primary Care) Vital Signs: Last Vital Signs Temp 96.9 F 12/06/24 10:03 Pulse 70 12/06/24 10:03 BP 140/82 H 12/06/24 10:03 Pulse Ox 98 12/06/24 10:03 Oxygen Delivery Method Room Air 12/06/24 10:03 BMI result Body Mass Index 29.0 Tobacco/Smoking Status: Tobacco use Status Tobacco use date assessed 12/06/24 12/06/24 10:10 Patient Tobacco Use Status Former Tobacco user 12/06/24 10:10 e-Cigarette/Vaping Use Never Used 12/06/24 10:10 PHQ-9: PHQ-9 Score PHQ-9: Total score 0 12/06/24 10:40 Depression Screening Interpretation: Negative Thrive Assessment: Date of Thrive Assessment Date Thrive assessed 12/06/24 12/06/24 10:10 Currently or been in a relationship where the following occur: No concerns reported Const Other: General: no acute distress, well developed, alert and awake Nutritional Appearance: well nourished Orientation/consciousness: patient oriented x3 HENMT Head: Yes normocephalic and Yes atraumatic Ears: hearing grossly normal bilaterally and TM's normal bilaterally General nose exam: Normal external nose present and Normal nares present Eyes Pupils: Equal, round and reactive pupils present and Pupil accommodation reflex normal EOM: EOMs intact bilaterally Neck Neck: Yes normal visual inspection, Yes no lymphadenopathy and Yes trachea midline Thyroid: Thyroid normal Lymphatic: no lymphadenopathy noted Chest Chest palpation & inspection: normal inspection of the chest Resp Effort & Inspection: normal respiratory effort Auscultation: clear to auscultation bilaterally Cardio Rate: regular rate Rhythm: regular rhythm Heart sounds: S1 normal heart sound present, S2 normal heart sound present, no gallops, no murmurs and no rubs Bruits: no abdominal aortic bruits and no carotid bruits GI Palpation (GI): No Abdominal aortic bruit present, Soft to palpation, nontender, No hepatosplenomegaly present and No Rebound tenderness present Auscultation: normal bowel sounds General: Yes no CVA tenderness Back/Spine/Pelvis Back: no CVA tenderness Cervical Spine: cervical ROM normal and No Cervical spine tenderness Thoracic/Lumbar Spine: thoraco-lumbar ROM normal, No pain with thoraco-lumbar ROM, No thoracic spinal tenderness and No lumbar spinal tenderness Skin General: warm and dry. Normal skin color. Normal skin turgor Lesions: no lesions Rashes: no rashes Trauma: no lacerations or abrasions Wounds: no wounds Nails: normal Neuro General: patient oriented x3, gait normal Cranial nerves: Yes Equal, round and reactive pupils present Cognition (Neuro): normal cognition Gait exam (Neuro): Normal gait present Extrem General: Yes normal to inspection, No edema and No calf tenderness Psych Appearance: grossly normal Affect: normal affect Attitude: cooperative Thought process: Normal thought process present Coding Level of Care Code Est Pt Level 4 (18607) Diagnoses Preoperative clearance Z01.818 S/P coronary artery stent placement Z95.5 BOY on CPAP G47.33; Z99.89 Mixed hyperlipidemia E78.2 Hyperlipidemia type: mixed hyperlipidemia Fatty liver K76.0 Coronary artery disease involving [place] coronary artery of [place] heart without angina pectoris I25.10 Coronary Disease-Associated Artery/Lesion type: [place] artery [place] vs. transplanted heart: [place] heart Associated angina: without angina Additional Codes PHQ-9 - 45246 - PHQ-9 Billing: Yes ([id number]) DURAN-7 Assessment Billing - DURAN-7 Assessment Tool: DURAN-7 Assessment 45516 ([id number]) Time Spent (min) 33 Assessment & Plan Assessment & Plan (1) Preoperative clearance: Code(s): Z01.818 - Encounter for other preprocedural examination Category: Medical Plan: Regarding preop clearance, the patient is at acceptable risk for proposed surgery. Reviewed with the patient that no surgery is completely free of risk and that this examination is to assist the surgeon in reviewing informed consent. Recent labs ordered and will be added to this document to complete the evaluation (2) S/P coronary artery stent placement: Code(s): Z95.5 - Presence of coronary angioplasty implant and graft Category: Surgical Plan: The patient was placed and aspirin and clopidogrel, he is current not on any medication. It is unclear when the medications were stopped. It was noted the patient self discontinued his pravastatin and losartan due to muscle aches and brain cloudiness. Reports that he is not currently following up with cardiology. (3) BOY on CPAP: Code(s): G47.33 - Obstructive sleep apnea (adult) (pediatric); Z99.89 - Dependence on other enabling machines and devices Category: Medical Plan: Continue CPAP (4) HLD (hyperlipidemia): Code(s): E78.5 - Hyperlipidemia, unspecified Category: Medical Qualifiers: Hyperlipidemia type: mixed hyperlipidemia Qualified Code(s): E78.2 - Mixed hyperlipidemia Plan: Labs ordered: the patient is currently not taking any medications. Per documentation, the patient had stopped pravastatin and started making dietary changes-which he was noted to be losing weight and doing better. No current labs and the last noted labs showed elevated triglycerides, total cholesterol and LDL and low HDL. (5) Fatty liver: Code(s): K76.0 - Fatty (change of) liver, not elsewhere classified Category: Medical Plan: know history of fatty liver. No recent evaluation. Labs ordered (6) Coronary artery disease: Code(s): I25.10 - Atherosclerotic heart disease of [place] coronary artery without angina pectoris Category: Medical Qualifiers: Coronary Disease-Associated Artery/Lesion type: [place] artery [place] vs. transplanted heart: [place] heart Associated angina: without angina Qualified Code(s): I25.10 - Atherosclerotic heart disease of [place] coronary artery without angina pectoris Plan: The patient is current not taking any medications Noted that he has been making lifestyle modifications Orders: Orders Hemoglobin A1c Today E78.2 - Mixed hyperlipidemia, G47.33 - Obstructive sleep apnea (adult) (pediatric), K76.0 - Fatty (change of) liver, not elsewhere classified, Z82.49 - Family history of ischemic heart disease and other diseases of the circulatory system, Z95.5 - Presence of coronary angioplasty implant and graft, Z99.89 - Dependence on other enabling machines and devices Complete Blood Count Auto Diff Today E78.2 - Mixed hyperlipidemia, G47.33 - Obstructive sleep apnea (adult) (pediatric), K76.0 - Fatty (change of) liver, not elsewhere classified, Z82.49 - Family history of ischemic heart disease and other diseases of the circulatory system, Z95.5 - Presence of coronary angioplasty implant and graft, Z99.89 - Dependence on other enabling machines and devices Comprehensive Miles. Panel Fast Today E78.2 - Mixed hyperlipidemia, G47.33 - Obstructive sleep apnea (adult) (pediatric), K76.0 - Fatty (change of) liver, not elsewhere classified, Z82.49 - Family history of ischemic heart disease and other diseases of the circulatory system, Z95.5 - Presence of coronary angioplasty implant and graft, Z99.89 - Dependence on other enabling machines and devices Lipid Panel Today E78.2 - Mixed hyperlipidemia, G47.33 - Obstructive sleep apnea (adult) (pediatric), K76.0 - Fatty (change of) liver, not elsewhere classified, Z82.49 - Family history of ischemic heart disease and other diseases of the circulatory system, Z95.5 - Presence of coronary angioplasty implant and graft, Z99.89 - Dependence on other enabling machines and devices UA CC w/rflx Micro + Cult Today E78.2 - Mixed hyperlipidemia, G47.33 - Obstructive sleep apnea (adult) (pediatric), K76.0 - Fatty (change of) liver, not elsewhere classified, Z82.49 - Family history of ischemic heart disease and other diseases of the circulatory system, Z95.5 - Presence of coronary angioplasty implant and graft, Z99.89 - Dependence on other enabling machines and devices TSH reflex Free T4 Today E78.2 - Mixed hyperlipidemia, G47.33 - Obstructive sleep apnea (adult) (pediatric), K76.0 - Fatty (change of) liver, not elsewhere classified, Z82.49 - Family history of ischemic heart disease and other diseases of the circulatory system, Z95.5 - Presence of coronary angioplasty implant and graft, Z99.89 - Dependence on other enabling machines and devices
[2024-12-06 10:03] VITALS: BP 140/82; PULSE 70; TEMP 36.1; O2SAT 98; BMI 29.0
[2024-12-06 10:09] VITALS: BP 136/74
--- OUTSIDE RECORDS SUMMARY | 2024-12-06 10:29 | XMS_ITS | Patient Health Record ---
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 Economist Name Role Phone Benjamin Fernandez Primary Care Provider UnavailGucci Adler Jr Unavailable [phone] ALLERGIES No Known Allergies REASON FOR REFERRAL [...] Problem Colon cancer screening (Z12.11) Active confirmed [id number] Problem Fatty liver (K76.0) Active confirmed [id number] PLAN OF TREATMENT Future Test Test Name Order Date COLONOSCOPY 11/27/2021 Insurance Providers Payer Name Payer Address Payer Phone Subscriber Number Group Number Insured Name Patient Relationship to Insured Coverage Start Date Coverage End Date [facility] [address] [address] [place], [place] [id number] NED JOHNSTON Self - patient is the insured MEDICAL (GENERAL) HISTORY Medical History History ICD Code Fatty liver Surgical History Surgery Date(Month/Year) bilateral inguinal hernia
== END 2024-12-06 10:41 | disposition home or self-care (01) ==
PROVIDERS: PCP Physician Assistant
DX: G47.33 Obstructive sleep apnea (adult) (pediatric) (principal); E78.2 Mixed hyperlipidemia; K76.0 Fatty (change of) liver, not elsewhere classified; I25.10 Atherosclerotic heart disease of native coronary artery without angina pectoris; Z01.818 Encounter for other preprocedural examination; Z95.5 Presence of coronary angioplasty implant and graft; Z99.89 Dependence on other enabling machines and devices

== ENCOUNTER → 2024-12-06 09:53 | Outpatient (BNVA) | payer OTHER, SELFPAY | PROVIDERS: PCP Physician Assistant | DX: Z01.818 Encounter for other preprocedural examination (principal); G47.33 Obstructive sleep apnea (adult) (pediatric); E78.2 Mixed hyperlipidemia; K76.0 Fatty (change of) liver, not elsewhere classified; I25.10 Atherosclerotic heart disease of native coronary artery without angina pectoris; Z99.89 Dependence on other enabling machines and devices; Z95.5 Presence of coronary angioplasty implant and graft | CPT/HCPCS: 96127; 99212 ==

== ENCOUNTER 2024-12-07 07:53 | Outpatient (REF) | payer OTHER, SELFPAY ==
--- OUTSIDE RECORDS SUMMARY | 2024-12-07 07:55 | XMS_ITS | Patient Health Record ---
Author Organization [facility] Address [address] [place] [address] Care Team Providers Care Patrol Conductor Name Role Phone Benjamin Fernandez Primary Care Provider UnavailGucci Adler Jr Unavailable ALLERGIES No Known Allergies REASON FOR REFERRAL [...] Problem Colon cancer screening (Z12.11) Active confirmed [id number] Problem Fatty liver (K76.0) Active confirmed [id number] PLAN OF TREATMENT Future Test Test Name Order Date COLONOSCOPY 11/27/2021 Insurance Providers Payer Name Payer Address Payer Phone Subscriber Number Group Number Insured Name Patient Relationship to Insured Coverage Start Date Coverage End Date [facility] [address] [address] [place], [place] [id number] NED JOHNSTON Self - patient is the insured MEDICAL (GENERAL) HISTORY Medical History History ICD Code Fatty liver Surgical History Surgery Date(Month/Year) bilateral inguinal hernia
[2024-12-07 10:24] LABS: MANUAL DIFF FLAG NO
[2024-12-07 10:46] LABS: Appearance Urine Clear; Color Urine Yellow; Glucose Urine UA Negative (Negative); Leukocyte Esterase Urine Negative (Negative); Nitrite Urine Negative (Negative); Urine Blood Negative (Negative); Urine Ketones Negative (Negative); Urine Protein Negative (Neg-Trace)
[2024-12-07 10:48] LABS: Basophils Percent Auto 0.5 % (0-2); Eosinophils Absolute Auto 0.1 X10*3/uL (0.0-0.4); Eosinophils Percent Auto 1.8 % (0-4); Hematocrit 41.9 % (42.0-52.0); Hemoglobin 14.6 g/dl (14.0-18.0); Imm Gran Abs Auto 0.06 X10*3/uL (0.00-0.03); Lymphocytes Absolute Auto 2.2 X10*3/uL (1.2-4.9); Lymphocytes Percent Auto 35.2 % (20-40); Mean Corpuscular HGB Conc 34.8 g/dl (31.0-36.0); Mean Corpuscular Hemoglobin 31.9 pg (27.0-33.0); Mean Corpuscular Volume 91.5 fL (80.0-98.0); Mean Platelet Volume 10.6 fL (9.4-12.4); Monocytes Absolute Auto 0.5 X10*3/uL (0.1-1.2); Monocytes Percent Auto 7.5 % (2-11); Neutrophils Absolute Auto 3.4 x10*3/uL (2.0-8.3); Platelet Count 291 X10*3/uL (160-400); Red Blood Count 4.58 X10*6/uL (4.60-5.80); Red Cell Distribution Width 11.8 % (11.0-16.0); White Blood Count 6.3 X10*3/uL (4.8-10.8)
[2024-12-07 11:00] LABS: Estimated Average Glucose 111 mg/dL; Hemoglobin A1c % 5.5 % (<6.0); Total Hemoglobin (HGBA1C) 3830.1276 umol/L
[2024-12-07 11:25] LABS: Alanine Aminotransferase 56 U/L (0-40); Alkaline Phosphatase 47 U/L (39-117); Anion Gap 10 (12-20); Aspartate Amino Transferase 31 U/L (5-37); Bilirubin Total 0.4 mg/dL (0.0-1.0); Blood Urea Nitrogen 8 mg/dL (9-16); Calcium 8.9 mg/dL (8.4-10.2); Carbon Dioxide 29 mmol/L (22-29); Chloride 102 mmol/L (96-108); Cholesterol 191 mg/dL (<200); Estimated Glomerular Filt Rate > 60; Glucose Fasting 93 mg/dL (60-99); HDL Cholesterol 33 mg/dL (>40); LDL Cholesterol Calculated 95 mg/dL (<100); Potassium 3.8 mmol/L (3.3-5.1); Sodium 137 mmol/L (135-145); Total Protein 7.2 g/dL (6.5-8.0); Triglycerides 316 mg/dL (<150)
[2024-12-07 11:40] LABS: TSH reflex Free T4 3.23 uIU/mL (0.32-4.0)
== END 2024-12-07 07:54 | disposition home or self-care (01) ==
LOC: HO.10HDL 07:53
DX: G47.33 Obstructive sleep apnea (adult) (pediatric) (principal)
CPT/HCPCS: 36415; 80053; 80061; 81003; 83036; 84443; 85025

== ENCOUNTER 2024-12-19 06:36 | Day surgery (SDC) | payer OTHER, SELFPAY ==
--- OUTSIDE RECORDS SUMMARY | 2024-10-20 08:37 | XMS_ITS | Patient Health Record ---
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 Name Role Phone Benjamin Fernandez Primary Care Provider UnavailGucci Adler Jr Unavailable [phone] ALLERGIES No Known Allergies REASON FOR REFERRAL No Information IMMUNIZATIONS Vaccine Route Administration Date Status Comme nts Influenza Unknown 11/27/2021 Administered SOCIAL HISTORY Tobacco Use: Social History Observation Description Date Details (start date - stop date) Never Smoker NA - NA Sex Assigned At : Social History Observation Description Sex Assigned At Unknown Tobacco Use/Smoking Question Answer Notes Patient is a nonsmoker Alcohol Screen Question Answer Notes Did you have a drink contain ing alcohol in the past year? Yes How often did you have a dri nk containing alcohol in the past year? 2 to 3 times a week (3 points) How many drinks did you have on a typical day when you were drinking in the past year? 1 or 2 drinks (0 point) How often did you have 6 or more drinks on one occasion in the past year? Never (0 point) Points 3 Interpretation Negative PROBLEMS Problem Type ICD Code Onset Dates Problem Status W/U Status Risk SNOMED Code Notes Problem Colon cancer screening (Z12.11) Active confirmed 697613839 Problem Fatty liver (K76.0) Active confirmed 248710312 PLAN OF TREATMENT Future Test Test Name Order Date COLONOSCOPY 11/27/2021 Insurance Providers Payer Name Payer Address Payer Phone Subscriber Number Group Number Insured Name Patient Relationship to Insured Coverage Start Date Coverage End Date [facility] [address] [address] [place], [place] [id number] NED JOHNSTON Self - patient is the insured MEDICAL (GENERAL) HISTORY Medical History History ICD Code Fatty liver Surgical History Surgery Date(Month/Year) bilateral inguinal hernia
[2024-12-13 14:08] VITALS: BMI 29.0
--- NOTE | 2024-12-15 12:53 | P.CONAN_ITS ---
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) SOB (shortness of breath) (Acute) S/P coronary artery stent placement (Acute) Coronary artery disease (Acute) Colon cancer screening (Acute) Fatty liver (Acute) HLD (hyperlipidemia) (Acute) FHx: coronary artery disease (Acute) Annual physical exam (Acute) Screening for hypothyroidism (Acute) Screening for hypercholesterolemia (Acute) Screening for diabetes mellitus (DM) (Acute) Folliculitis (Acute) Right shoulder tendinitis (Acute) Left shoulder tendinitis (Acute) BOY on CPAP (Acute) Past Medical History Medical History Bilateral cataracts BOY on CPAP History of diverticulitis Family History Family History Father CHF (congestive heart failure) CVD (cardiovascular disease) Mother Diabetes Son Down syndrome Brother Myocardial infarction Other Mental health disorder Family history of problems with anesthesia: No Surgical History Surgical History H/O heart artery stent History of colonoscopy History of sigmoidoscopy History of inguinal hernia repair History of Problems with Anesthesia: No Social History Social History Housing: House Are you a primary behavioral health care coordinator to a significant other at home: No Do you presently have visiting nurse or other home services: No Alcohol intake: current Alcohol intake frequency: a few times a week Alcohol type: beer Patient Tobacco Use Status: Former Tobacco user Tobacco use type: Cigarette Smoked in Last 30 Days: No e-Cigarette/Vaping Use: Never Used Second Hand Smoke Exposure: Yes Use of substances other than those prescribed or required for medical reasons: No Have you been hit, kicked, punched, or otherwise hurt by someone within the past year? 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 Cognitive needs: No Hearing needs: No Vision needs: Yes (glasses) Meds Allergies Allergy/AdvReac Type Severity Reaction Status Date / Time No Known Allergies Allergy Verified 12/19/24 06:58 [No Known Allergies*] Home Medications ?Medication ?Instructions ?Recorded ?Confirmed ?Last Taken ?Type No Known Home Meds 01/26/24 12/19/24 Unknown History Exam Height,Weight and Vital Signs: Height 5 ft 9 in Weight 89.018 kg Assessment and Plan Assessment Anesthesia Assessment: Chart Reviewed Final Anesthetic Review Family History of Problems with Anesthesia: No History of Problems with Anesthesia: No Documented by User: Diana Chan MD 12/19/24 07:34 [facility] Past Medical History Medical History Bilateral cataracts BOY on CPAP History of diverticulitis Family History Family History Father CHF (congestive heart failure) CVD (cardiovascular disease) Mother Diabetes Son Down syndrome Brother Myocardial infarction Other Mental health disorder Surgical History Surgical History H/O heart artery stent History of colonoscopy History of sigmoidoscopy History of inguinal hernia repair Social History Social History Housing: House Are you a primary behavioral health care coordinator to a significant other at home: No Do you presently have visiting nurse or other home services: No Alcohol intake: current Alcohol intake frequency: a few times a week Alcohol type: beer Patient Tobacco Use Status: Former Tobacco user Tobacco use type: Cigarette Smoked in Last 30 Days: No e-Cigarette/Vaping Use: Never Used Second Hand Smoke Exposure: Yes Use of substances other than those prescribed or required for medical reasons: No Have you been hit, kicked, punched, or otherwise hurt by someone within the past year? 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 Cognitive needs: No Hearing needs: No Vision needs: Yes (glasses) Meds Allergies Allergy/AdvReac Type Severity Reaction Status Date / Time No Known Allergies Allergy Verified 12/19/24 06:58 [No Known Allergies*] Home Medications ?Medication ?Instructions ?Recorded ?Confirmed ?Last Taken ?Type No Known Home Meds 01/26/24 12/19/24 Unknown History Exam Airway Mallampati Class: III TM Dist: >3cm Neck ROM: Full Loose/Missing/Broken Teeth: No Heart: RRR Lungs: CTA Assessment and Plan Assessment Anesthesia Assessment: Anesthesia Plan Discussed Final Anesthetic Review NPO: Yes ASA Class: III Final Preanesthetic Review: Meds/Allgs Chart Reviewed, Consent Obtained/Reviewed and Anes Risks/Benef Reviewed Patient Risk: Intermediate Procedure Risk: Low Anesthetic Plan Anesthetic Plan: MAC: Disposition: Standard PACU
[2024-12-19 06:50] VITALS: BMI 29.5
[2024-12-19 06:58] VITALS: BP 166/92; PULSE 68; RESP 16; TEMP 36.1; O2SAT 100
[2024-12-19] MEDS: Lactated Ringers 500 ML 50 ML IV (07:03)
[2024-12-19] MEDS: Tetracaine HCl/PF 0.5% Oph Sol 4 ML DROPS 1 DROP EYE-RIGHT (07:06)
[2024-12-19] MEDS: Cyclopentolate 1 % Ophth Sol 2 ML DRPBTL 1 DROP EYE-RIGHT ×3 (07:07→07:23)
[2024-12-19] MEDS: Tropicamide 1 % Ophth Sol 3 ML BTL 1 DROP EYE-RIGHT ×3 (07:09→07:25)
[2024-12-19] MEDS: Ketorolac Tromethamine 0.5% Op 5 ML DROPS 1 DROP EYE-RIGHT ×3 (07:11→07:27)
[2024-12-19] MEDS: Phenylephrine HCL 2.5% Oph SoL 2 ML BOTTLE 1 DROP EYE-RIGHT ×3 (07:13→07:29)
--- NOTE | 2024-12-19 07:26 | MHC.SHP ---
Pre-Procedural Eval Section A - 24 Hr Update-Section A only Date of Service: 12/19/24 The patient is an INPATIENT: No Changes since office visit: No Cold of Flu in the past 2 weeks, No New Medical Problems, No Changes in Medication and No Patient answered all questions The patient has been examined within 24 hours of the surgical procedure. The History & Physical has been completed within 30 days and I have reviewed it.: Yes Section B - Complete if H&P > 30 days Chief Complaint: Age-related nuclear cataract, right eye Allergies: Allergies Allergy/AdvReac Type Severity Reaction Status Date / Time No Known Allergies Allergy Verified 12/19/24 06:58 [No Known Allergies*] Plan Diagnosis/Plan: Unchanged I have reviewed the history and physical and performed a pertinent physical examination on my patient. No changes have occurred unless specified. Time Spent With Patient Time: Total time managing care of this patient today ____ minutes.
--- NOTE | 2024-12-19 07:29 | P.PCNO_ITS ---
Ophthalmology Procedure Procedure Date of Service: 12/19/24 Ophthalmology Viscoelastic: Healon Duet Dual Pack Pro Ophthalmology Lenses: Other (DXROO 19.5) Procedure Notes: PREOPERATIVE DIAGNOSIS: Decreased visual acuity right eye secondary to cataract POSTOPERATIVE DIAGNOSIS: Same PROCEDURE: Right cataract extraction with multifocal intraocular lens insertion SURGEON: Roberto Carlos Mejia M.D. ANESTHESIA: Topical/MAC ESTIMATED BLOOD LOSS: None COMPLICATIONS: None After obtaining informed consent, the patient was brought to the operating room suite and placed in the supine position. After adequate sedation per anesthesia, topical drops of Tetracaine were given to the right eye. The eye was then prepped and draped in the usual sterile fashion. The operating room microscope was then positioned over the operative eye and a lid speculum placed. A paracentesis was created. Viscoelastic was then instilled into the anterior chamber. A three plane incision was then created temporally, utilizing a 2.85 mm keratome. Capsulotomy forceps were then utilized to create a circular tear capsulotomy. Hydrodissection and hydrodelineation were carried out until adequate mobilization of the nucleus occurred. Phacoemulsification was then utilized to remove the dense central nu cleus followed by removal of the cortical material utilizing the automated aspiration irrigation unit. Viscoelastic was instilled into the posterior capsular bag followed by placement of a multifocal posterior chamber intraocular lens without difficulty. The residual Viscoelastic was then removed utilizing the automated IA machine. The wound was checked and found to be watertight. The patient tolerated the procedure well and the lid speculum was removed. Intracameral injection of Vigamox 0.1 mL followed by a subtenon injection of Kenalog-40 0.2 mL were administered. The patient will be seen in the a.m.
[2024-12-19 08:05] VITALS: BP 155/95; PULSE 66; RESP 17; TEMP 36.1; O2SAT 98
== END 2024-12-19 08:10 | disposition home or self-care (01) ==
PROVIDERS: PCP Physician Assistant; Visit Provider Ophthalmology
PROC: (CPT 66984; principal; 2024-12-19 07:30)
DX: H25.11 Age-related nuclear cataract, right eye (principal); H52.4 Presbyopia; H33.311 Horseshoe tear of retina without detachment, right eye; H11.151 Pinguecula, right eye; I25.10 Atherosclerotic heart disease of native coronary artery without angina pectoris; I25.2 Old myocardial infarction; Z95.5 Presence of coronary angioplasty implant and graft; E78.2 Mixed hyperlipidemia; G47.33 Obstructive sleep apnea (adult) (pediatric); Z79.82 Long term (current) use of aspirin; Z99.89 Dependence on other enabling machines and devices; Z79.899 Other long term (current) drug therapy; Z98.890 Other specified postprocedural states; Z87.891 Personal history of nicotine dependence
CPT/HCPCS: 66984; J2250; J3010; J3301; V2788

== ENCOUNTER 2025-01-02 06:14 | Day surgery (SDC) | payer OTHER, SELFPAY ==
[2024-12-13 14:15] VITALS: BMI 29.0
[2025-01-02 06:27] VITALS: BP 170/98; PULSE 60; RESP 20; TEMP 36.2; O2SAT 96; BMI 29.0
[2025-01-02] MEDS: Lactated Ringers 500 ML 20 ML IVCONT (06:43)
[2025-01-02] MEDS: Tetracaine HCl/PF 0.5% Oph Sol 4 ML DROPS 1 DROP EYE-LEFT (06:43)
[2025-01-02] MEDS: Phenylephrine HCL 2.5% Oph SoL 2 ML BOTTLE 1 DROP EYE-LEFT ×3 (06:44→06:45)
[2025-01-02] MEDS: Tropicamide 1 % Ophth Sol 3 ML BTL 1 DROP EYE-LEFT ×3 (06:44→06:45)
[2025-01-02] MEDS: Cyclopentolate 1 % Ophth Sol 2 ML DRPBTL 1 DROP EYE-LEFT ×3 (06:44→06:45)
[2025-01-02] MEDS: Ketorolac Tromethamine 0.5% Op 5 ML DROPS 1 DROP EYE-LEFT ×3 (06:44→06:45)
--- NOTE | 2025-01-02 07:25 | HO.PNOPHT ---
Ophthalmology Procedure Procedure Date of Service: 01/02/25 Ophthalmology Viscoelastic: Healon Duet Dual Pack Pro Ophthalmology Lenses: Other ([id number] 19.5) Procedure Notes: PREOPERATIVE DIAGNOSIS: Decreased visual acuity left eye secondary to cataract POSTOPERATIVE DIAGNOSIS: Same PROCEDURE: Left cataract extraction with intraocular lens insertion SURGEON: Roberto Carlos Mejia M.D. ANESTHESIA: Topical/MAC ESTIMATED BLOOD LOSS: None COMPLICATIONS: None After obtaining informed consent, the patient was brought to the operation room suite and placed in the supine position. After adequate sedation per anesthesia, topical drops of Tetracaine were given to the left eye. The eye was then prepped and draped in the usual sterile fashion. The operating room microscope was then positioned over the operative eye and a lid speculum placed. A paracentesis was created. Viscoelastic was then instilled into the anterior chamber. A three plane incision was then created temporally, utilizing a 2.85 mm keratome. Capsulotomy forceps were then utilized to create a circular tear capsulotomy. Hydrodissection and hydrodelineation were carried out until adequate mobilization of the nucleus occurred. Phacoemulsification was then utilized to remove the dense central nucleus followed by removal of the cortical material utilizing the automated aspiration irrigation unit. Viscoat elastic was instilled into the posterior capsular bag followed by placement of a posterior chamber intraocular lens without difficulty. The residual Viscoat elastic was then removed utilizing the automated IA machine. The wound was check and found to be watertight. The patient tolerated the procedure well and the lid speculum was removed. Intracameral injection of Vigamox 0.1 mL followed by a subtenon injection of Kenalog-40 0.2 mL were administered. The patient will be seen in the a.m.
--- NOTE | 2025-01-02 07:26 | MHC.SHP ---
Pre-Procedural Eval Section A - 24 Hr Update-Section A only Date of Service: 01/02/25 The patient is an INPATIENT: No Changes since office visit: No Cold of Flu in the past 2 weeks, No New Medical Problems, No Changes in Medication and No Patient answered all questions The patient has been examined within 24 hours of the surgical procedure. The History & Physical has been completed within 30 days and I have reviewed it.: Yes Section B - Complete if H&P > 30 days Chief Complaint: Age-related nuclear cataract, left eye Allergies: Allergies Allergy/AdvReac Type Severity Reaction Status Date / Time No Known Allergies Allergy Verified 12/19/24 06:58 [No Known Allergies*] Plan Diagnosis/Plan: Unchanged I have reviewed the history and physical and performed a pertinent physical examination on my patient. No changes have occurred unless specified. Time Spent With Patient Time: Total time managing care of this patient today ____ minutes.
--- NOTE | 2025-01-02 07:35 | P.CONAN_ITS ---
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) SOB (shortness of breath) (Acute) S/P coronary artery stent placement (Acute) Coronary artery disease (Acute) Colon cancer screening (Acute) Fatty liver (Acute) HLD (hyperlipidemia) (Acute) FHx: coronary artery disease (Acute) Annual physical exam (Acute) Screening for hypothyroidism (Acute) Screening for hypercholesterolemia (Acute) Screening for diabetes mellitus (DM) (Acute) Folliculitis (Acute) Right shoulder tendinitis (Acute) Left shoulder tendinitis (Acute) BOY on CPAP (Acute) Past Medical History Medical History Bilateral cataracts BOY on CPAP History of diverticulitis Family History Family History Father CHF (congestive heart failure) CVD (cardiovascular disease) Mother Diabetes Son Down syndrome Brother Myocardial infarction Other Mental health disorder Family history of problems with anesthesia: No Surgical History Surgical History H/O heart artery stent History of colonoscopy History of sigmoidoscopy History of inguinal hernia repair History of Problems with Anesthesia: No Social History Social History Housing: House Are you a primary wound care rn to a significant other at home: No Do you presently have visiting nurse or other home services: No Alcohol intake: current Alcohol intake frequency: does not drink Alcohol type: beer Patient Tobacco Use Status: Former Tobacco user Tobacco use type: Cigarette e-Cigarette/Vaping Use: Never Used Second Hand Smoke Exposure: Yes Have you been hit, kicked, punched, or otherwise hurt by someone within the past year? 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 Cognitive needs: No Hearing needs: No Vision needs: Yes (glasses) Meds Allergies Allergy/AdvReac Type Severity Reaction Status Date / Time No Known Allergies Allergy Verified 12/19/24 06:58 [No Known Allergies*] Active Medications: Current Medications Lactated Ringer's (Lr) 500 mls @ 20 mls/hr IVCONT .Q24H LINA Last Admin: 01/02/25 06:43 Dose: 20 mls/hr Povidone Iodine (Povidone Iodine 5 % Ophth Soln 30 Ml Bottle) 1 appl EYE-LEFT PREOP PRN PRN Reason: Pre-Op Surgical Implant Prophy Home Medications ?Medication ?Instructions ?Recorded ?Confirmed ?Last Taken ?Type No Known Home Meds 01/26/24 12/19/24 Unknown History Exam Height,Weight and Vital Signs: Height 5 ft 9 in Weight 89.2 kg Last Vital Signs Temp 97.1 F 01/02/25 06:27 Pulse 60 01/02/25 06:27 Resp 20 01/02/25 06:27 BP 170/98 H 01/02/25 06:27 Pulse Ox 96 01/02/25 06:27 O2 Del Method Room Air 01/02/25 06:27 Airway Mallampati Class: II TM Dist: >3cm Neck ROM: Limited Heart: rrr Lungs: cta Assessment and Plan Assessment Anesthesia Assessment: Anesthesia Plan Discussed and Chart Reviewed Final Anesthetic Review Family History of Problems with Anesthesia: No History of Problems with Anesthesia: No NPO: Yes ASA Class: III Final Preanesthetic Review: No Changes in Pt Med Stat, Meds/Allgs Chart Reviewed, Consent Obtained/Reviewed and Anes Risks/Benef Reviewed Patient Risk: Intermediate Procedure Risk: Low Anesthetic Plan Anesthetic Plan: MAC: Disposition: Standard PACU
--- NOTE | 2025-01-02 07:55 | HO.PNOPHT ---
Ophthalmology Procedure Procedure Date of Service: 01/02/25 Ophthalmology Viscoelastic: Healon Duet Dual Pack Pro Ophthalmology Lenses: Other ([id number] 19.5 @ 92 degrees) Procedure Notes: PREOPERATIVE DIAGNOSIS: Decreased visual acuity left eye secondary to cataract POSTOPERATIVE DIAGNOSIS: Same PROCEDURE: Left cataract extraction with multifocal intraocular lens insertion SURGEON: Roberto Carlos Mejia M.D. ANESTHESIA: Topical/MAC ESTIMATED BLOOD LOSS: None COMPLICATIONS: None After obtaining informed consent, the patient was brought to the operation room suite and placed in the supine position. After adequate sedation per anesthesia, topical drops of Tetracaine were given to the left eye. The eye was then prepped and draped in the usual sterile fashion. The operating room microscope was then positioned over the operative eye and a lid speculum placed. A paracentesis was created. Viscoelastic was then instilled into the anterior chamber. A three plane incision was then created temporally, utilizing a 2.85 mm keratome. Capsulotomy forceps were then utilized to create a circular tear capsulotomy. Hydrodissection and hydrodelineation were carried out until adequate mobilization of the nucleus occurred. Phacoemulsification was then utilized to remove the dense central nucleus followed by removal of the cortical material utilizing the automated aspiration irrigation unit. Viscoelastic was instilled into the posterior capsular bag followed by placement of a multifocal posterior chamber intraocular lens without difficulty. The residual Viscoelastic was then removed utilizing the automated IA machine. The wound was check and found to be watertight. The patient tolerated the procedure well and the lid speculum was removed. Intracameral injection of Vigamox 0.1 mL followed by a subtenon injection of Kenalog-40 0.2 mL were administered. The patient will be seen in the a.m.
[2025-01-02 07:57] VITALS: BP 183/104; PULSE 61; RESP 16; TEMP 36.2; O2SAT 100
== END 2025-01-02 08:15 | disposition home or self-care (01) ==
PROVIDERS: PCP Physician Assistant; Visit Provider Ophthalmology
PROC: (CPT 66984; principal; 2025-01-02 07:30)
DX: H25.12 Age-related nuclear cataract, left eye (principal); H52.4 Presbyopia; H11.042 Peripheral pterygium, stationary, left eye; I25.2 Old myocardial infarction; I25.10 Atherosclerotic heart disease of native coronary artery without angina pectoris; Z95.5 Presence of coronary angioplasty implant and graft; E78.2 Mixed hyperlipidemia; G47.33 Obstructive sleep apnea (adult) (pediatric); Z99.89 Dependence on other enabling machines and devices; K76.0 Fatty (change of) liver, not elsewhere classified; Z79.82 Long term (current) use of aspirin; Z87.19 Personal history of other diseases of the digestive system; Z87.891 Personal history of nicotine dependence
CPT/HCPCS: 66984; J2250; J3301; V2787

== ENCOUNTER 2025-01-27 10:19 | Emergency (ER) | payer OTHER, SELFPAY ==
--- NOTE | ~2025-01-27 | XR_ITS ---
EXAMINATION: XR CHEST CLINICAL INFORMATION: CP COMPARISON: November 28, 2022. TECHNIQUE: Frontal view of the chest was obtained. FINDINGS: No consolidation, pleural fissure pneumothorax. Cardiomediastinal silhouette is normal. Mild multilevel thoracic spondylosis. XR/XR chest 1V IMPRESSION: No acute airspace disease. Stable chest. Electronically signed by: Titi Johnson MD 01/27/2025 11:08 AM EDT
--- NOTE | 2025-01-27 10:27 | ECG_ITS ---
Test Reason : dizziness Blood Pressure : */* mmHG Vent. Rate : 73 BPM Atrial Rate : 73 BPM P-R Int : 172 ms QRS Dur : 84 ms QT Int : 404 ms P-R-T Axes : 48 16 42 degrees QTcB Int : 445 ms Normal sinus rhythm Low voltage QRS Nonspecific T wave abnormality Abnormal ECG When compared with ECG of 28-Nov-2022 08:20, QT has lengthened Referred By: Generic ED Physician Electronically Signed By: Lance Reeder
[2025-01-27 10:37] VITALS: BP 157/84; BP 207/90; PULSE 76; PULSE 85; RESP 16; TEMP 36.7; O2SAT 97; BMI 31.2
[2025-01-27 11:00] LABS: Prothrombin Time 11.7 SEC (10.9-12.4)
[2025-01-27 11:02] LABS: Hematocrit 40.5 % (42.0-52.0); Hemoglobin 14.4 g/dl (14.0-18.0); Mean Corpuscular HGB Conc 35.6 g/dl (31.0-36.0); Mean Corpuscular Hemoglobin 32.2 pg (27.0-33.0); Mean Corpuscular Volume 90.6 fL (80.0-98.0); Mean Platelet Volume 10.9 fL (9.4-12.4); Platelet Count 202 X10*3/uL (160-400); Red Blood Count 4.47 X10*6/uL (4.60-5.80); Red Cell Distribution Width 12.3 % (11.0-16.0); White Blood Count 5.9 X10*3/uL (4.8-10.8)
[2025-01-27 11:14] LABS: Alanine Aminotransferase 104 U/L (0-40); Albumin Level 4.1 g/dL (3.5-5.0); Alkaline Phosphatase 51 U/L (39-117); Anion Gap 13 (12-20); Aspartate Amino Transferase 56 U/L (5-37); Bilirubin Total 0.6 mg/dL (0.0-1.0); Blood Urea Nitrogen 11 mg/dL (9-16); Calcium 9.2 mg/dL (8.4-10.2); Carbon Dioxide 25 mmol/L (22-29); Chloride 104 mmol/L (96-108); Creatinine Clr Calc Pharmacy 109.3; Estimated Glomerular Filt Rate > 60; Glucose Random 161 mg/dL (60-115); Potassium 3.7 mmol/L (3.3-5.1); Sodium 138 mmol/L (135-145); Total Protein 7.4 g/dL (6.5-8.0)
[2025-01-27 11:18] LABS: B Type Natriuretic Peptide 16 pg/mL (<100)
[2025-01-27 11:19] LABS: Troponin-I High Sensitivity < 2.7 ng/L (<3.5-35.0)
--- NOTE | 2025-01-27 11:33 | ED_ITS ---
HPI - Chest Pain General Chief Complaint: Chest Pain Stated Complaint: HTN, CHEST TIGHTNESS PER EMS Time Seen by Provider: 01/27/25 11:33 Source: patient and EMS Mode of arrival: EMS Limitations: no limitations History of Present Illness ED Provider: Sahra Bain PA-C HPI narrative: Patient is a 64 year old assigned male at with a history of CAD and HLD presenting to the emergency department today with nausea, dizziness, and chest tightness. Patient states that this morning he had an episode of dizziness, nausea, and chest tightness. Patient states that he was given nitroglycerin and ASA which resolved the pain and he states he has no pain now. Patient states that he did have a heart attack in 2021 but does not currently see a sandblaster paint sprayer or take any medications. Patient denies any current dizziness, lightheadedness, abdominal pain, nausea, vomiting, fever, chills, blurry vision, double vision, loss of vision, chest pain, difficulty breathing, shortness of breath, back pain, night sweats, pain with urination, increased urinary frequency, increased urinary urgency, blood in his urine or stool, syncope or a near syncopal episode, recent trauma or falls, bowel incontinence, bladder incontinence, or any other complaints at this time. Related Data Home Medications ?Medication ?Instructions ?Recorded ?Confirmed No Known Home Meds 01/26/24 12/19/24 Allergies Allergy/AdvReac Type Severity Reaction Status Date / Time No Known Allergies Allergy Verified 01/27/25 10:39 [No Known Allergies*] Review of Systems 2 Constitutional: Constitutional: Reports no additional constitutional complaints, Denies chills, Denies fever(s) and Denies night sweats Eyes: Eyes: Reports no additional eye complaints, Denies blurry vision, Denies change in vision, Denies diplopia, Denies eye discharge, Denies loss of vision and Denies eye pain ENT: Reports dizziness (now resolved) Cardiovascular: Cardiovascular: Reports no additional cardiovascular complaints, Reports chest pain (tightness - now resolved), Denies lightheadedness, Denies Loss of Consciousness and Denies dyspnea Respiratory: Respiratory: Reports no additional respiratory complaints and Denies dyspnea Gastrointestinal: Gastrointestinal: Reports no additional gastrointestinal complaints, Denies abdominal pain, Denies melena, Denies hematochezia, Denies change in bowel habits and Denies change in stool character Genitourinary: Genitourinary: Reports no additional male genitourinary complaints, Denies hematuria, Denies oliguria, Denies difficulty urinating, Denies dysuria, Denies urinary frequency, Denies urinary hesitancy, Denies urinary incontinence and Denies urinary urgency Musculoskeletal: Musculoskeletal: Reports no additional musculoskeletal complaints, Denies numbness and Denies tingling Neurologic: Reports dizziness (now resolved), Denies loss of vision, Denies numbness and Denies tingling Psychiatric: Psychiatric: Reports no additional psychiatric complaints Endocrine: Endocrine: Reports no additional endocrine complaints Hematologic/Lymphatic: Hematologic/Lymphatic: Reports no additional hematologic/lymphatic complaints Allergic/Immunologic: Allergic/Immunologic: Reports no additional allergic/immunologic complaints [facility] Past Medical History Medical History Bilateral cataracts BOY on CPAP History of diverticulitis Surgical History H/O heart artery stent History of colonoscopy History of sigmoidoscopy History of inguinal hernia repair Family History Family History Father CHF (congestive heart failure) CVD (cardiovascular disease) Mother Diabetes Son Down syndrome Brother Myocardial infarction Other Mental health disorder Social History Social History Housing: House Are you a primary career transition specialist to a significant other at home: No Do you presently have visiting nurse or other home services: No Alcohol intake: current Alcohol intake frequency: does not drink Alcohol type: beer Patient Tobacco Use Status: Former Tobacco user Tobacco use type: Cigarette e-Cigarette/Vaping Use: Never Used Second Hand Smoke Exposure: Yes Advance Directives: Yes Advance Directives on File: Yes Advance Directives Date on File: 01/27/25 service: No Current occupational status: employed 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 Patient's physical exam was unremarkable. Patient's blood work was unremarkable, including flat serial troponins. Patient's EKG was unremarkable. Patient's chest x-ray showed no acute process. I consulted with Dr. Reeder, the sandblaster paint sprayer carton forming machine helper, who agreed the patient was appropriate for discharge and outpatient follow up. Patient remained pain free while in the department. I explained my physical exam findings as well as all test results to the patient. I answered all questions asked by the patient. I stressed the importance of the patient taking his medication as directed (either prescribed or as the over the counter packaging recommends). I stressed the importance of the patient following up with his primary care provider and a sandblaster paint sprayer. I stressed the importance of the patient returning to the emergency department immediately if his symptoms were to worsen or if he were to develop any dizziness, shortness of breath, difficulty breathing, chest pain, blurry vision, loss of vision, nausea, vomiting, abdominal pain, fever, chills, back pain, or any other complaints. Patient verbalized agreement and understanding with this treatment plan and discharge. Differential Diagnosis Differential Diagnoses: The differential diagnosis associated with the presentation includes Atypical chest pain Chest wall pain Anxiety Panic attack NSTEMI STEMI Angina ACS Admission/Observation Consideration of admission/observation: Escalation of care including admission/observation considered Patient would have been admitted to the hospital had his work up had any findings where hospital admission was appropriate and his clinical presentation warranted hospital admission. Consult Healthcare Provider Management of the patient was discussed with: Sand Drier (spoke to Dr. Reeder as noted in the MDM Rationale portion of this note. ) Lab Data [facility] Lab Attestation statement: I reviewed the patient's lab results. My interpretation of these results are in the MDM Rationale portion of this note. 01/27/25 10:38 01/27/25 10:38 Labs: Lab Results 01/27/25 01/27/25 Range/Units 10:38 12:43 WBC 5.9 (4.8-10.8) X10*3/uL RBC 4.47 L (4.60-5.80) X10*6/uL Hgb 14.4 (14.0-18.0) g/dl Hct 40.5 L (42.0-52.0) % MCV 90.6 (80.0-98.0) fL MCH 32.2 (27.0-33.0) pg MCHC 35.6 (31.0-36.0) g/dl RDW 12.3 (11.0-16.0) % Plt Count 202 D (160-400) X10*3/uL MPV 10.9 (9.4-12.4) fL Absolute Nucleated RBC 0.000 (0.0-0.012) X10*3/uL Nucleated RBC % (auto) 0.0 (0.0-0.2) /100WBC PT 11.7 (10.9-12.4) SEC INR 1.0 (0.9-1.1) Sodium 138 (135-145) mmol/L Potassium 3.7 (3.3-5.1) mmol/L Chloride 104 (96-108) mmol/L Carbon Dioxide 25 (22-29) mmol/L Anion Gap 13 (12-20) BUN 11 (9-16) mg/dL Creatinine 0.79 (0.5-1.4) mg/dL Estim Creat Clear Calc 109.3 Estimated GFR > 60 Random Glucose 161 H (60-115) mg/dL Calcium 9.2 (8.4-10.2) mg/dL Total Bilirubin 0.6 (0.0-1.0) mg/dL AST 56 H (5-37) U/L ALT 104 H (0-40) U/L Alkaline Phosphatase 51 (39-117) U/L Troponin I High Sens < 2.7 D < 2.7 (<3.5-35.0) ng/L B-Natriuretic Peptide 16 (<100) pg/mL Total Protein 7.4 (6.5-8.0) g/dL Albumin 4.1 (3.5-5.0) g/dL Independent Interpretation I performed an independent interpretation of an: EKG and Plain X-Ray Interpretation: My interpretation is in agreement with the radiologist's impression of this imaging study. L EXAMINATION: XR CHEST CLINICAL INFORMATION: CP COMPARISON: November 28, 2022. TECHNIQUE: Frontal view of the chest was obtained. FINDINGS: No consolidation, pleural fissure pneumothorax. Cardiomediastinal silhouette is normal. Mild multilevel thoracic spondylosis. XR/XR chest 1V IMPRESSION: No acute airspace disease. Stable chest. Electronically signed by: Titi Johnson MD 01/27/2025 11:08 AM EDT RP Dictated By: Titi Cruz MD Signed By: Electronically signed by Titi Shell MD 01/27/25 1108 I independently interpreted this EKG and am in agreement with the below findings: Vent. Rate: 73 BPM Atrial Rate: 73 BPM P-R Int: 172 ms QRS Dur: 84 ms QT Int: 404 ms P-R-T Axes: 48 16 42 degrees QTcB Int: 445 ms Normal sinus rhythm Low voltage QRS Nonspecific T wave abnormality When compared with ECG of 28-Nov-2022 08:20, QT has lengthened DD/ 1030 Radiology Impression Discussion of test interpretation with radiology: I have reviewed the radiologist's reading. Independent Historian Clinical information obtained from an independent historian. History obtained from or confirmed by: EMS (EMS provided additional history and confirmed the history provided by the patient.) Discharge Plan Discharge Clinical Impression: Chest pain Patient Disposition: Home, Self-Care Instructions: Chest Pain (DC) Additional Instructions: Your work up today was reassuring however, you must follow up with a sandblaster paint sprayer. Follow up with your primary care provider. Return to the emergency department immediately if your symptoms worsen or if you develop any numbness, tingling, dizziness, shortness of breath, difficulty breathing, chest pain, blurry vision, loss of vision, nausea, vomiting, abdominal pain, fever, chills, back pain, or any other complaints. Please see the information below about our Patient Portal. If you are not yet enrolled in the [facility] Patient Portal, you will receive an enrollment email invitation following your visit to any [facility] setting. You may also self-enroll in the Patient Portal by visiting our website: [email or web address] The following information is required to access the Patient Portal: - Your [facility] Medical Record Number - Your personal home email address (must match what is in your electronic medical record, Registration staff can assist with this) - Name - Date of Capabilities of the Patient Portal: - Message some providers - View upcoming appointments - Access your health summary, medical history, and visit history - View current conditions and allergies - View procedure and lab results - View your medications, including guidelines, side effects, and precautions - Complete pre-appointment questionnaires requested by your provider - Ready summary reports of your office visits and procedures To access the Patient Portal Mobile [employer], follow these directions: - Search [employer] in the Alana Store or [employer] Store - Download the Alana - Search for [facility] - Enter your login/password Prescriptions: No Action No Known Home Meds Referrals: [facility] [Provider Group] (Call to establish and follow up with a sandblaster paint sprayer. ) Mirtha Main MD [Primary Care Provider] - Print Language: [place] Timorese
[2025-01-27 12:43] VITALS: BP 141/80; PULSE 72; RESP 16; O2SAT 98
[2025-01-27 13:16] LABS: Troponin-I High Sensitivity < 2.7 ng/L (<3.5-35.0)
[2025-01-27 13:47] VITALS: BP 141/80; PULSE 72; RESP 16; TEMP 36.9; O2SAT 98
== END 2025-01-27 13:47 | disposition home or self-care (01) ==
PROVIDERS: Physician Assistant Medical; Emergency Provider Emergency Medicine; PCP Internal Medicine
DX: R07.89 Other chest pain (principal); R06.02 Shortness of breath; I25.10 Atherosclerotic heart disease of native coronary artery without angina pectoris; R11.0 Nausea; R42 Dizziness and giddiness; I10 Essential (primary) hypertension; Z87.891 Personal history of nicotine dependence
CPT/HCPCS: 36415; 71045; 80053; 83880; 84484; 85027; 85610; 93005; 99283; 99284

== ENCOUNTER → 2025-01-27 10:27 | Outpatient (BNV) | payer OTHER, SELFPAY | PROVIDERS: Emergency Provider Emergency Medicine; PCP Internal Medicine; Visit Provider Internal Medicine Cardiovascular Disease | DX: R42 Dizziness and giddiness (principal); R94.31 Abnormal electrocardiogram [ECG] [EKG] | CPT/HCPCS: 93010 ==

== ENCOUNTER → 2025-01-27 10:36 | Outpatient (BNV) | payer OTHER, SELFPAY | PROVIDERS: Emergency Provider Emergency Medicine; PCP Internal Medicine; Visit Provider Radiology Diagnostic Radiology | DX: R07.9 Chest pain, unspecified (principal) | CPT/HCPCS: 71045 ==

== ENCOUNTER → 2025-04-05 11:10 | Outpatient (BNVA) | payer OTHER, SELFPAY | PROVIDERS: PCP Physician Assistant; Visit Provider Internal Medicine ==

== ENCOUNTER 2025-04-17 08:59 | Outpatient (AMB) | payer OTHER, SELFPAY ==
--- NOTE | 2025-04-17 09:06 | MHC.OFFVIS ---
Vital Signs 04/17/25 09:07 Height 5 ft 9 in Weight 201 lb 11.567 oz BMI 29.8 BP 124/72 Blood Pressure Location Lt brachial Position Sitting Pulse 61 Pulse Source Pulse Oximeter Pulse Oximetry (%) 99 Oxygen Delivery Method Room Air Intake Visit Reasons: pulmonary nodule Thread Twister Required: No Accompanied by: Self / Same As Patient Allergies No Known Allergies [No Known Allergies*] Allergy (Verified 04/17/25 09:09) HPI Comments Details: The patient is a 64-year-old gentleman who was recently diagnosed with acute coronary syndrome requiring PCI with 2 stents. The patient recovered well after his intervention. Still, complaint of dyspnea on exertion and some heaviness in the chest area. Mild in severity. As part of the workup the patient had a chest x-ray that was nondiagnostic. Ultimately had a CT scan of the chest which was personally by me back in January 2023. He has multiple pulmonary nodules noted largest measuring 6 mm in size. Upon evaluation of the CT scan the nodules appear to be well-circumscribed some hazy they are bilateral. No significant lymphadenopathy or any concerning features with the nodules. No evidence of any emphysema or parenchymal lung disease. Patient also underwent pulmonary function studies which I personally reviewed demonstrating no evidence of any obstructive nor restrictive ventilatory defects. He is starting to exercise more this time. He could not participate in cardiac rehab because of some delays. Ultimately he is wondering if these medications could be resulting in symptoms. I do agree with that this time that could be playing a role her she will be starting exercise regimen he will be coming off some of the medication the next few months. If his symptoms persist can always call socan further address symptoms. Otherwise will have him follow-up in January of [address] scan. 01/26/2024 the patient is here for a pulmonary follow-up visit. Overall the patient has been doing well. Continues to have some dyspnea on exertion. Heaviness in the chest area. [id number]-[id number] severity. Is tends to be intermittent. He is trying to exercise more I do believe this will help. We did look at his last PFTs from 2022 and there were reassuring. His last CT scan was back from 01/26/2023 demonstrating pulmonary nodules largest 1 measuring 10 mm in size. He was supposed to have a CT scan before this visit but he did not have 1. Will make sure that he has 1 and I will call him with the results. In the meantime he continues uses CPAP at nighttime. CPAP therapy continues to be affecting beneficial. Will go ahead and change his mask and he is getting irritation to of the nasal bridge because of the fullface mask. He does not tolerate the nasal pillows or the nasal mask because of air leakage through his mouth. I did have an F30 I mask available that he liked although only had a small size. I do believe medium probably a better size for him. The patient will continue to get supplies through his [employer] company [employer]. Will follow-up year's time. 04/17/2025 the patient is here for pulmonary follow-up visit. Overall he is doing okay. Starting exercise program. In the meantime he has been using the CPAP. CPAP therapy continues to be affecting beneficial. He did try a nasal mask but he did work for him. He does better with a fullface mask. He does have facial hair. He does use [employer]. Will go ahead and send supplies her the [employer]. However, if he is no longer active with the company he may need another sleep study in order to get him reactivated with an updated diagnosis. We did review his last CT scan of the chest that was done back in January 2024. Personally by me. It appears that he has multiple nodules largest 1 measuring about 4 mm in size. The last time he was compared to his 2022. This is a question of 2019 but that was not abdominal CT scan and did not have all the lung windows available. Therefore, go ahead and request a repeat CAT scan to make sure we follow up the nodules up to 2 years. If the nodules show no change then no additional serial testing indicated. [facility] Medical History (Updated 04/17/25 @ 09:44 by Sharad Lala MD) Fatty liver disease, nonalcoholic Pulmonary nodules Coronary artery disease Bilateral cataracts BOY on CPAP History of diverticulitis Surgical History (Updated 04/05/25 @ 15:45 by Mirtha Main MD) S/P coronary artery stent placement Hx of cataract surgery History of colonoscopy History of sigmoidoscopy History of inguinal hernia repair Family History Father CHF (congestive heart failure) CVD (cardiovascular disease) Mother Diabetes Son Down syndrome Brother Myocardial infarction Other Mental health disorder Social History 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:: , 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, 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 Housing: House Are you a primary managed care director to a significant other at home: No Do you presently have visiting nurse or other home services: No Alcohol intake: current Alcohol intake frequency: does not drink Alcohol type: beer Patient Tobacco Use Status: Former Tobacco user Tobacco use type: Cigarette e-Cigarette/Vaping Use: Never Used Second Hand Smoke Exposure: Yes Advance Directives Date on File: 01/27/25 service: No Current occupational status: employed 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 Cognitive needs: No Hearing needs: No Vision needs: Yes (glasses) Review of Systems Const Denies chills, Denies fatigue, Denies fever(s), Denies weight gain and Denies weight loss ENT Denies dizziness Card Denies chest pain, Denies leg edema, Denies lightheadedness, Denies palpitations, Denies dyspnea on exertion, Denies orthopnea and Denies other Resp Denies cough and Denies dyspnea on exertion GI Denies hematochezia and Denies change in stool character Musc Denies abnormal gait, Denies muscle weakness, Denies numbness, Denies radiating pain into limb and Denies tingling Neuro Denies Abnormal speech present, Denies abnormal gait, Denies dizziness, Denies numbness and Denies tingling Endo Denies fatigue and Denies palpitations Physical Exam Vital Signs: Last Vital Signs Pulse 61 04/17/25 09:07 BP 124/72 04/17/25 09:07 Pulse Ox 99 04/17/25 09:07 Oxygen Delivery Method Room Air 04/17/25 09:07 BMI result Body Mass Index 29.8 Const General: comfortable HEENT Head: Yes normocephalic Neck Neck: Yes supple Chest Chest palpation & inspection: normal inspection of the chest Resp Effort & Inspection: normal respiratory effort Auscultation: clear to auscultation bilaterally Cardio Rate: regular rate Rhythm: regular rhythm Heart sounds: S1 normal heart sound present and S2 normal heart sound present GI Palpation (GI): Soft to palpation Skin General skin exam: no rashes or lesions noted Neuro Speech: No Abnormal speech present Extrem General: Yes no clubbing, cyanosis or edema Assessment & Plan Assessment & Plan (1) Pulmonary nodules: Code(s): R91.8 - Other nonspecific abnormal finding of lung field Category: Medical (2) BOY on CPAP: Comment: f/u Dr. Lala Code(s): G47.33 - Obstructive sleep apnea (adult) (pediatric); Z99.89 - Dependence on other enabling machines and devices Category: Medical (3) SOB (shortness of breath): Code(s): R06.02 - Shortness of breath Category: Medical Plan continue exercise regimen CT chest 01/2024, needs repeat now continue APAP ([employer]) needs a new mask F30i medium. Needs supplies. No need for inhalers at this time F/U 1 year Orders: Orders CT chest wo IV con Today R91.8 - Other nonspecific abnormal finding of lung field Coding Level of Care Code Est Pt Level 4 (10055) Diagnoses Pulmonary nodules R91.8 BOY on CPAP G47.33; Z99.89 SOB (shortness of breath) R06.02 Time Spent (min) 17
[2025-04-17 09:07] VITALS: BP 124/72; PULSE 61; O2SAT 99; BMI 29.8
--- OUTSIDE RECORDS SUMMARY | 2025-04-17 09:16 | XMS_ITS | Patient Health Record ---
Author Organization [facility] Address [address] [place] [address] Care Team Providers Care Food Court Team Member Name Role Phone Benjamin Fernandez Primary Care Provider UnavailGucci Adler Jr Unavailable [phone] Allergies No Known Allergies Reason For Referral No Information Immunizations Vaccine Route Administration Date Status Comme nts Influenza Unknown 11/27/2021 Administered Social History Tobacco Use: Social History Observation Description Date Details (start date - stop date) Never Smoker NA - NA Tobacco Use/Smoking Question Answer Notes Patient is [...] Never (0 point) Points 3 Interpretation Negative Problems Problem Type SNOMED Code ICD Code Onset Dates Problem Status W/U Status Risk Notes Problem [id number] Colon cancer screening (Z12.11) Active confirmed Problem 119394836 Fatty liver (K76.0) Active confirmed Plan Of Treatment Future Test Test Name Order Date COLONOSCOPY 11/27/2021 Insurance Providers Payer Name Payer Address Payer Phone Subscriber Number Group Number Insured Name Patient Relationship to Insured Coverage Start Date Coverage End Date [facility] [employer] [facility] [address] [address] [place], [place] [phone] [id number] NED JOHNSTON Self - patient is the insured Medical (General) History Medical History History ICD Code Fatty liver Surgical History Surgery Date(Month/Year) bilateral inguinal hernia
== END 2025-04-17 09:57 | disposition home or self-care (01) ==
LOC: HO.HPS 09:00
PROVIDERS: PCP Internal Medicine; Visit Provider Hospitalist
DX: R91.8 Other nonspecific abnormal finding of lung field (principal); G47.33 Obstructive sleep apnea (adult) (pediatric); Z99.89 Dependence on other enabling machines and devices; R06.02 Shortness of breath
CPT/HCPCS: 99214

== ENCOUNTER → 2025-04-17 08:59 | Outpatient (BNVA) | payer OTHER, SELFPAY | PROVIDERS: PCP Internal Medicine; Visit Provider Hospitalist | DX: G47.33 Obstructive sleep apnea (adult) (pediatric) (principal); R91.8 Other nonspecific abnormal finding of lung field; R06.02 Shortness of breath; Z99.89 Dependence on other enabling machines and devices | CPT/HCPCS: 99212 ==

== ENCOUNTER 2025-06-07 11:24 | Outpatient (AMB) | payer OTHER, SELFPAY ==
[2025-06-07 11:54] VITALS: BP 116/70; PULSE 67; TEMP 36.7; O2SAT 99; BMI 31.0
--- NOTE | 2025-06-07 11:54 | MHC.OFFWIV ---
Intake Vital Signs 06/07/25 11:54 Height 5 ft 9 in Weight 210 lb 2 oz BMI 31.0 BP 116/70 Blood Pressure Location Rt brachial Position Sitting Pulse 67 Pulse Source Pulse Oximeter Temp 98.1 F Temp Source Oral Pulse Oximetry (%) 99 Oxygen Delivery Method Room Air Intake Visit Reasons: EP pain on kidneys Patient Tobacco Use Status: Former Tobacco user Senior Benefits Manager Required: No Allergies No Known Allergies (No Known Allergies*) Allergy (Verified 06/07/25 11:57) Do you need a note to return to daycare/school/sports/work: No HPI HPI Comments History of Present Illness Details This is a 64-year-old male with a past medical history of coronary artery disease presenting for evaluation of bilateral low back pain that he has had since Thursday. Patient states that he has had chronic and intermittent low back pain for years but is unable to identify any injury or trauma that may have exacerbated this pain on Thursday. Patient states that the pain will radiate laterally but denies any radicular symptoms. He has taken ibuprofen or Tylenol once to twice daily only as needed without relief of his symptoms. Patient reports urinary frequency without dysuria and denies any fevers, chills or hematuria. REPLACED BY [facility] Medical History (Updated 06/07/25 @ 13:46 by Geri Herron PA-C) Fatty liver disease, nonalcoholic Pulmonary nodules Coronary artery disease Bilateral cataracts BOY on CPAP History of diverticulitis Surgical History (Updated 04/05/25 @ 15:45 by Mirtha Main MD) S/P coronary artery stent placement Hx of cataract surgery History of colonoscopy History of sigmoidoscopy History of inguinal hernia repair Family History Father CHF (congestive heart failure) CVD (cardiovascular disease) Mother Diabetes Son Down syndrome Brother Myocardial infarction Other Mental health disorder Social History 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:: , 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, 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 Housing: House Are you a primary floor care specialist to a significant other at home: No Do you presently have visiting nurse or other home services: No Alcohol intake: current Alcohol intake frequency: does not drink Alcohol type: beer Patient Tobacco Use Status: Former Tobacco user Tobacco use type: Cigarette e-Cigarette/Vaping Use: Never Used Second Hand Smoke Exposure: Yes Advance Directives Date on File: 01/27/25 service: No Current occupational status: employed 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 Cognitive needs: No Hearing needs: No Vision needs: Yes (glasses) Review of Systems Const All systems reviewed & are unremarkable except as noted in HPI and below Eyes Reports no additional complaints ENT Reports no additional complaints Card Reports no additional complaints Resp Reports no additional complaints GI Reports no additional complaints Denies dysuria, Denies testicular pain, Reports urinary frequency, Denies urinary hesitancy and Denies urinary urgency Musc Reports no additional complaints, Reports back pain, Denies arthralgias, Denies muscle cramps, Denies muscle weakness and Denies radiating pain into limb Skin/Breast Reports system reviewed and no additional complaints, except as documented Neuro Reports no additional complaints Psych Reports no additional complaints Endo Reports no additional complaints Bang/Lymph Reports no additional complaints Aller/Immun Reports no additional complaints Physical Exam Vital Signs: Last Vital Signs Temp 98.1 F 06/07/25 11:54 Pulse 67 06/07/25 11:54 BP 116/70 06/07/25 11:54 Pulse Ox 99 06/07/25 11:54 Oxygen Delivery Method Room Air 06/07/25 11:54 BMI result Body Mass Index 31.0 Const General: cooperative, healthy appearing, comfortable, no acute distress, well developed, alert, awake and Physically active; No acute distress or ill appearing Nutritional Appearance: well nourished Orientation/consciousness: patient oriented x3 Limitations: no limitations GI Inspection: Yes normal to inspection Palpation (GI): Soft to palpation, Tenderness to palpation present (GI) in the LLQ (mild, without guarding) and no guarding Auscultation: normal bowel sounds General: Yes Bimanual renal exam normal bilaterally, Yes bladder normal to palpation and Yes no CVA tenderness Back/Spine/Pelvis Back: no CVA tenderness Thoracic/Lumbar Spine: thoracic and lumbar spine normal to inspection, thoraco-lumbar ROM normal, straight leg raise negative bilaterally, No pain with thoraco-lumbar ROM, No paraspinal muscle tenderness, No thoracic spinal tenderness, No lumbar spinal tenderness and No straight leg raise positive Sacroiliac joints: bilaterally nontender Skin General skin exam: no rashes or lesions noted Neuro General: patient oriented x3 Extrem Other: ROM lower extremities intact bilaterally with 5/5 strength hip flexion, extension and internal/external rotation of the hips against resistance General: Yes normal to inspection, Yes full ROM, Yes normal gait and No calf tenderness Psych Appearance: grossly normal Mental Status: mental status grossly normal Insight: Good insight present (Psych) Judgement: Good judgement present (Psych) Results Reviewed Results Reviewed: Urinalysis is not consistent with an acute UTI or hematuria. Assessment & Plan Assessment & Plan (1) Low back pain: Comment: There is no evidence of an acute UTI or renal calculi on urinalysis. Patient's pain is bilateral and acute on chronic. Patient will be discharged home with an anti-inflammatory and muscle relaxant however will inquire with his primary care provider about obtaining a prescription for physical therapy. Code(s): M54.50 - Low back pain, unspecified Qualifiers: Chronicity: unspecified Back pain laterality: bilateral Sciatica presence: without sciatica Qualified Code(s): M54.50 - Low back pain, unspecified Plan: Naprosyn 500 mg b.i.d., methocarbamol 750 mg t.i.d. for 7-10 days. Physical therapy as needed if pain persists. Orders: Orders AMB Urinalysis [employer]. Today M54.9 - Dorsalgia, unspecified Medications: New naproxen (Naprosyn) 500 mg PO BID 20 tabs 0RF methocarbamol 750 mg PO Q8H 30 tabs 0RF Coding Level of Care Code Est Pt Level 4 (39465) Diagnoses Bilateral low back pain without sciatica, unspecified chronicity M54.50 Chronicity: unspecified Back pain laterality: bilateral Sciatica presence: without sciatica Time Spent (min) 25
--- OUTSIDE RECORDS SUMMARY | 2025-06-07 12:25 | XMS_ITS | Patient Health Record ---
Author Organization [facility] Address [address] [place] [address] Care Team Providers Care Program Project Manager Name Role Phone Benjamin Fernandez Primary Care Provider UnavailGucci Adler Jr Unavailable Allergies No Known Allergies Reason For Referral [...] Problem Status W/U Status Risk Notes Problem [id number] Colon cancer screening (Z12.11) Active confirmed Problem [id number] Fatty liver (K76.0) Active confirmed Plan Of Treatment Future Test Test Name Order Date COLONOSCOPY 11/27/2021 Insurance Providers Payer Name Payer Address Payer Phone Subscriber Number Group Number Insured Name Patient Relationship to Insured Coverage Start Date Coverage End Date [facility] [address] [address] [place], [place] [id number] NED JOHNSTON Self - patient is the insured Medical (General) History Medical History History ICD Code Fatty liver Surgical History Surgery Date(Month/Year) bilateral inguinal hernia
--- OUTSIDE RECORDS SUMMARY | 2025-06-07 12:25 | XMS_ITS | Clinical Summary ---
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 Name Role Phone Unavailable Primary Care Provider Unavailabl e Social History Tobacco Use Types Packs/Day Years Used Date Smoking Tobacco: Never Assessed Sex and Gender Information Value Date Recorded Sex Assigned at Not on file Legal Sex Male 6:11 PM EST Gender Identity Not on file Sexual Orientation Not on file Plan of Treatment Upcoming Encounters Date Type Department Care Team ([facility] st Contact Info) Description 10/18/2025 3:15 PM EST Office Visit [facility] [place] [address] Jaswinder Koenig MD [address] [place] [address], [address] [place] [address] [email or web address] Health Maintenance Due Date Last Done Comments Adult Td,Tdap Booster 1961 LIPID PANEL 1961 DEPRESSION SCREENING 1973 HEPATITIS C SCREENING 1979 HIV ONE-TIME SCREENING (18-6 5 YEARS) 1979 PNEUMOCOCCAL VACCINES (50+ y ears) (1 of 1 - PCV) 2011 ZOSTER VACCINES (1 of 2) 2011 COVID-19 VACCINE ( - 2023-2 5 season) 2024 RSV VACCINE (1 - 1-dose 75+ series) 2036 COLORECTAL CANCER SCREENING Completed HEPATITIS A VACCINES Aged Out No long er eligible based on patient's age to complete this topic HIB VACCINES Aged Out No longer eligi ble based on patient's age to complete this topic MENINGOCOCCAL VACCINES (ACWY) Aged Out No longer eligible based on patient's age to complete this topic MENINGOCOCCAL VACCINES (B) Aged Out N o longer eligible based on patient's age to complete this topic Medical Devices Not on file [place] [address] [place] [id number] ACO Additional Source Comments The information contained in this document represents components of the legal health record. It is not the complete legal health record.[facility]
== END 2025-06-07 14:26 | disposition home or self-care (01) ==
PROVIDERS: PCP Internal Medicine; Visit Provider Physician Assistant
DX: Z13.9 Encounter for screening, unspecified (principal); M54.50 Low back pain, unspecified

== ENCOUNTER → 2025-06-07 11:24 | Outpatient (BNVA) | payer OTHER, SELFPAY | PROVIDERS: PCP Internal Medicine; Visit Provider Physician Assistant | DX: M54.50 Low back pain, unspecified (principal) | CPT/HCPCS: 81003; 99212 ==

== ENCOUNTER 2025-06-08 10:08 | Outpatient (AMB) | payer OTHER, SELFPAY ==
[2025-06-08 10:11] VITALS: BP 120/76; PULSE 75; RESP 18; TEMP 36.7; O2SAT 99
--- NOTE | 2025-06-08 10:11 | MHC.PC.OV ---
Vital Signs 06/08/25 10:11 Height 5 ft 9 in Weight 203 lb BMI 30.0 BP 120/76 Blood Pressure Location Lt brachial Position Sitting Respiration 18 Pulse 75 Pulse Source Pulse Oximeter Temp 98.0 F Temp Source Oral Pulse Oximetry (%) 99 Oxygen Delivery Method Room Air Intake Visit Reasons: 2m follow up Intake Note: Pt is here today for 2 months follow up visit. Allergies No Known Allergies (No Known Allergies*) Allergy (Verified 06/08/25 10:15) Medication List - Last Reconciled 06/08/25 by Mirtha Main MD aspirin 81 mg PO DAILY methocarbamol 750 mg PO Q8H naproxen (Naprosyn) 500 mg PO BID rosuvastatin (Crestor) 10 mg PO DAILY Tobacco use date assessed: 06/08/25 Dental Screening Dental Screen Date: 04/05/25 HPI 2m follow up HPI Details Patient presents for the follow-up. He has been taking rosuvastatin for hyperlipidemia and tolerating medication well. Patient had an episode of lower back pain after lifting a heavy object at work. He denies weakness numbness in lower extremities or radiation of the pain from the back. He has been taking methocarbamol and naproxen with good relief. 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:: , 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, 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 Housing: House Are you a primary animal care technician to a significant other at home: No Do you presently have visiting nurse or other home services: No Alcohol intake: current Alcohol intake frequency: does not drink Alcohol type: beer Patient Tobacco Use Status: Former Tobacco user Tobacco use type: Cigarette e-Cigarette/Vaping Use: Never Used Second Hand Smoke Exposure: Yes Advance Directives Date on File: 01/27/25 service: No Current occupational status: employed 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 Cognitive needs: No Hearing needs: No Vision needs: Yes (glasses) Questionnaire Thrive Questionnaire Date Thrive assessed: 04/05/25 I am a: Patient What is your living situation today?: I have a steady place to live Within the past 12 months, did the food you bought not last and you didn't have the money to get more?: Never true Within the past 12 months, did you worry whether your food would run out before you got money to buy more?: Never true Do you have trouble paying for medicines?: No Do you have trouble getting transportation to medical appointments?: No Do you have trouble paying your heating and electricity bill?: No Do you have trouble taking care of your child, family member or friend?: No Do you have trouble with day-to-day activities such as bathing, preparing meals, shopping, managing finances, etc.?: No Are you currently unemployed and looking for a job?: Yes Are you interested in more education?: No Please select the resources that you would like help with: None Currently or been in a relationship where the following occur: No concerns reported THRIVE Score: 0 DURAN-7 AMB Questionnaire DURAN-7 Date DURAN - 7 assessed: 04/05/25 Source: Developed by Drs. Delbert Allan, Barbara Gamboa, Isai Cisneros and colleagues, with an educational nicolette from [employer]. Review of Systems Const All systems reviewed & are unremarkable except as noted in HPI and below Eyes Reports no additional complaints ENT Reports no additional complaints Card Reports no additional complaints Resp Reports no additional complaints GI Reports no additional complaints Physical exam (Primary Care) Vital Signs: Last Vital Signs Temp 98.0 F 06/08/25 10:11 Pulse 75 06/08/25 10:11 Resp 18 06/08/25 10:11 BP 120/76 06/08/25 10:11 Pulse Ox 99 06/08/25 10:11 Oxygen Delivery Method Room Air 06/08/25 10:11 BMI result Body Mass Index 30.0 Tobacco/Smoking Status: Tobacco use Status Tobacco use date assessed 06/08/25 06/08/25 10:16 Patient Tobacco Use Status Former Tobacco user 06/08/25 10:13 Tobacco use type Cigarette 06/08/25 10:13 e-Cigarette/Vaping Use Never Used 06/08/25 10:13 Thrive Assessment: Date of Thrive Assessment Date Thrive assessed 04/05/25 06/08/25 10:13 Currently or been in a relationship where the following occur: No concerns reported Const General: no acute distress HENMT Head: Yes normal to inspection Ears: hearing grossly normal bilaterally Eyes General: appearance normal, both eyes and all related structures Neck Neck: Yes no lymphadenopathy and Yes supple Resp Effort & Inspection: normal respiratory effort Auscultation: clear to auscultation bilaterally Cardio Rhythm: regular rhythm Heart sounds: S1 normal heart sound present and S2 normal heart sound present GI Inspection: Yes normal to inspection Palpation (GI): Soft to palpation Percussion: Yes normal to percussion Auscultation: normal bowel sounds Neuro Cranial nerves: Yes CN's II-XII intact bilaterally Gait exam (Neuro): Normal gait present Motor exam (neuro): 5/5 motor strength present throughout Romberg Test: Negative Coding Level of Care Code Est Pt Level 4 (21794) Diagnoses Coronary artery disease involving [place] coronary artery of [place] heart without angina pectoris I25.10 Coronary Disease-Associated Artery/Lesion type: [place] artery Habematolel vs. transplanted heart: [place] heart Associated angina: without angina Hyperglycemia R73.9 BOY on CPAP G47.33; Z99.89 Pulmonary nodules R91.8 Assessment & Plan Assessment & Plan (1) Coronary artery disease: Comment: STEMI 07/2022 s/p 2 CARLIE to RCA 07/2022, f/u PVC Code(s): I25.10 - Atherosclerotic heart disease of [place] coronary artery without angina pectoris Category: Medical Qualifiers: Coronary Disease-Associated Artery/Lesion type: [place] artery Habematolel vs. transplanted heart: [place] heart Associated angina: without angina Qualified Code(s): I25.10 - Atherosclerotic heart disease of [place] coronary artery without angina pectoris Plan: Continue aspirin and statin patient will return for fasting blood work (2) Hyperglycemia: Code(s): R73.9 - Hyperglycemia, unspecified Category: Medical Plan: ADA diet increase physical activity weight loss discussed with the patient he will return for fasting labs including A1c and will follow-up in 6 months with a fasting labs before (3) BOY on CPAP: Comment: f/u Dr. Lala Code(s): G47.33 - Obstructive sleep apnea (adult) (pediatric); Z99.89 - Dependence on other enabling machines and devices Category: Medical Plan: Continue CPAP (4) Pulmonary nodules: Comment: Established with pulmonology, Code(s): R91.8 - Other nonspecific abnormal finding of lung field Category: Medical Plan: Follow-up with pulmonology Orders: Orders Complete Blood Count Auto Diff Today I25.10 - Atherosclerotic heart disease of [place] coronary artery without angina pectoris, Z00.00 - Encounter for general adult medical examination without abnormal findings Hemoglobin A1c Today I25.10 - Atherosclerotic heart disease of [place] coronary artery without angina pectoris, Z00.00 - Encounter for general adult medical examination without abnormal findings PSA,Total (Free>4and<10) Today Z00.00 - Encounter for general adult medical examination without abnormal findings Hemoglobin A1c 6 Months I25.10 - Atherosclerotic heart disease of [place] coronary artery without angina pectoris, R73.9 - Hyperglycemia, unspecified Comprehensive [place]. Panel Fast Today I25.10 - Atherosclerotic heart disease of [place] coronary artery without angina pectoris, Z00.00 - Encounter for general adult medical examination without abnormal findings Lipid Panel Today I25.10 - Atherosclerotic heart disease of [place] coronary artery without angina pectoris, Z00.00 - Encounter for general adult medical examination without abnormal findings Microalbumin, Random (w Creat) Today I25.10 - Atherosclerotic heart disease of [place] coronary artery without angina pectoris, Z00.00 - Encounter for general adult medical examination without abnormal findings Lipid Panel 6 Months I25.10 - Atherosclerotic heart disease of [place] coronary artery without angina pectoris, R73.9 - Hyperglycemia, unspecified Comprehensive [place]. Panel Fast 6 Months I25.10 - Atherosclerotic heart disease of [place] coronary artery without angina pectoris, R73.9 - Hyperglycemia, unspecified
--- OUTSIDE RECORDS SUMMARY | 2025-06-08 10:52 | XMS_ITS | Patient Health Record ---
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 Name Role Phone Benjamin Fernandez Primary Care [...] Problem Status W/U Status Risk Notes Problem [id number] Colon cancer screening (Z12.11) Active confirmed Problem [id number] Fatty liver (K76.0) Active confirmed Plan Of Treatment Future Test Test Name Order Date COLONOSCOPY 11/27/2021 Insurance Providers Payer Name Payer Address Payer Phone Subscriber Number Group Number Insured Name Patient Relationship to Insured Coverage Start Date Coverage End Date [facility] [employer] [facility] [address] [address] [place], [place] [id number] NED JOHNSTON Self - patient is the insured Medical (General) History Medical History History ICD Code Fatty liver Surgical History Surgery Date(Month/Year) bilateral inguinal hernia
--- OUTSIDE RECORDS SUMMARY | 2025-06-08 10:52 | XMS_ITS | Clinical Summary ---
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 Not on susan e 06/07/2025 Are you concerned about learning? Not on file 06/07/2025 No 06/07/2025 No 06/07/2025 Digital Access Answer Date Recorded No 06/07/2025 No 06/07/2025 Reliable internet access at home? Not on file 06/07/2025 Device with a working camera? Not on file Sex and Gender Information Value Date Recorded Sex Assigned at Not on file Legal Sex Male 6:11 PM EST Gender Identity Not on file Sexual Orientation Not on file Plan of Treatment Upcoming Encounters Date Type Department Care Team (Late st Contact Info) Description 10/18/2025 3:15 PM EST Office Visit [facility] in [address] [address] Jaswinder Koenig MD [address] [place] [address], [address] [place] [id number] [email or web address] Health Maintenance Due Date Last Done Comments Adult Td,Tdap Booster 1961 LIPID PANEL 1961 DEPRESSION SCREENING 1973 SMOKING Hx and SMOKELESS TOB ACCO SCREENING 1974 HEPATITIS C SCREENING 1979 HIV ONE-TIME SCREENING (18-6 5 YEARS) 1979 COLOGUARD 2006 COLONOSCOPY 2006 COLORECTAL CANCER SCREENING 2006 FIT TEST 2006 FOBT 2006 SIGMOIDOSCOPY 2006 VIRTUAL COLONOSCOPY 2006 PNEUMOCOCCAL VACCINES (50+ y ears) (1 of 1 - PCV) 2011 ZOSTER VACCINES (1 of 2) 2011 COVID-19 VACCINE ( - 2023-2 5 season) 2024 RSV VACCINE (1 - 1-dose 75+ series) 2036 HEPATITIS A VACCINES Aged Out No long [...] topic Medical Devices Not on file Insurance [employer] Additional Source Comments The information contained in this document represents components of the legal health record. It is not the complete legal health record[facility]
== END 2025-06-08 12:20 | disposition home or self-care (01) ==
LOC: HO.HMCC 10:09
PROVIDERS: PCP Physician Assistant; Visit Provider Internal Medicine
DX: I25.10 Atherosclerotic heart disease of native coronary artery without angina pectoris (principal); R73.9 Hyperglycemia, unspecified; G47.33 Obstructive sleep apnea (adult) (pediatric); Z99.89 Dependence on other enabling machines and devices; R91.8 Other nonspecific abnormal finding of lung field

== ENCOUNTER → 2025-06-08 10:08 | Outpatient (BNVA) | payer OTHER, SELFPAY | PROVIDERS: PCP Physician Assistant; Visit Provider Internal Medicine | DX: I25.10 Atherosclerotic heart disease of native coronary artery without angina pectoris (principal); E78.5 Hyperlipidemia, unspecified; M54.50 Low back pain, unspecified; R73.9 Hyperglycemia, unspecified; G47.33 Obstructive sleep apnea (adult) (pediatric); R91.8 Other nonspecific abnormal finding of lung field; Z99.89 Dependence on other enabling machines and devices | CPT/HCPCS: 99212 ==

== ENCOUNTER 2025-06-15 07:21 | Outpatient (REF) | payer OTHER, SELFPAY ==
--- OUTSIDE RECORDS SUMMARY | 2025-06-15 07:24 | XMS_ITS | Patient Health Record ---
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 Name Role Phone Benjamin Fernandez Primary [...] Problem Status W/U Status Risk Notes Problem [id number] Colon cancer screening (Z12.11) Active confirmed Problem [id number] Fatty liver (K76.0) Active confirmed Plan Of Treatment Future Test Test Name Order Date COLONOSCOPY 11/27/2021 Insurance Providers Payer Name Payer Address Payer Phone Subscriber Number Group Number Insured Name Patient Relationship to Insured Coverage Start Date Coverage End Date [facility] [employer] [facility] [address] [address] [place], [place] [id number] NED JOHNSTON Self - patient is the insured Medical (General) History Medical History History ICD Code Fatty liver Surgical History Surgery Date(Month/Year) bilateral inguinal hernia
--- OUTSIDE RECORDS SUMMARY | 2025-06-15 07:24 | XMS_ITS | Clinical Summary ---
Author Organization [facility] Address [address] [place] [phone] Phone Care Team Providers Care Product Development Worker Name Role Phone Unavailable Primary Care Provider [...] PM EST Office Visit [facility] in [address] [address] Jaswinder Koenig MD [address] [place] [address], [address] [place] [id number] [email or web address] Health Maintenance Due Date Last Done Comments [...] topic Medical Devices Not on file Insurance [facility] [place] [id number] Additional Source Comments The information contained in this document represents components of the legal health record. It is not the complete legal health record.[facility]
[2025-06-15 10:43] LABS: MANUAL DIFF FLAG NO
[2025-06-15 10:52] LABS: Hematocrit 43.9 % (42.0-52.0); Hemoglobin 15.0 g/dl (14.0-18.0); Imm Gran Abs Auto 0.03 X10*3/uL (0.00-0.03); Imm Gran Pct Auto 0.5 % (0.0-0.4); Lymphocytes Absolute Auto 2.1 X10*3/uL (1.2-4.9); Mean Corpuscular HGB Conc 34.2 g/dl (31.0-36.0); Mean Corpuscular Hemoglobin 31.6 pg (27.0-33.0); Mean Corpuscular Volume 92.6 fL (80.0-98.0); NRBC Abs Auto 0.000 X10*3/uL (0.0-0.012); NRBC Pct Auto 0.0 /100WBC (0.0-0.2); Platelet Count 227 X10*3/uL (160-400); Red Blood Count 4.74 X10*6/uL (4.60-5.80); White Blood Count 6.4 X10*3/uL (4.8-10.8)
[2025-06-15 10:57] LABS: Hemoglobin A1C 153.3318 umol/L; Total Hemoglobin (HGBA1C) 3936.6050 umol/L
[2025-06-15 11:16] LABS: Alanine Aminotransferase 78 U/L (0-40); Albumin Level 4.4 g/dL (3.5-5.0); Alkaline Phosphatase 45 U/L (39-117); Anion Gap 10 (12-20); Aspartate Amino Transferase 54 U/L (5-37); Blood Urea Nitrogen 15 mg/dL (9-16); Calcium 9.4 mg/dL (8.4-10.2); Carbon Dioxide 29 mmol/L (22-29); Chloride 106 mmol/L (96-108); Cholesterol 177 mg/dL (<200); Estimated Glomerular Filt Rate > 60; HDL Cholesterol 40 mg/dL (>40); Potassium 4.1 mmol/L (3.3-5.1); Sodium 141 mmol/L (135-145); Total Protein 7.0 g/dL (6.5-8.0); Triglycerides 223 mg/dL (<150)
[2025-06-15 11:29] LABS: PSA,Total (Free>4and<10) 0.90 ng/mL (0.00-4.00)
== END 2025-06-15 07:22 | disposition home or self-care (01) ==
LOC: HO.10HDL 07:21
PROVIDERS: Visit Provider Internal Medicine
DX: Z00.00 Encounter for general adult medical examination without abnormal findings (principal); Z12.5 Encounter for screening for malignant neoplasm of prostate; I25.10 Atherosclerotic heart disease of native coronary artery without angina pectoris
CPT/HCPCS: 36415; 80053; 80061; 82043; 82570; 83036; 84153; 85025

== ENCOUNTER 2025-07-12 11:34 | Outpatient (AMB) | payer OTHER, SELFPAY ==
[2025-07-12 12:22] VITALS: BP 112/60; PULSE 71; TEMP 37.1; O2SAT 96; BMI 29.1
--- NOTE | 2025-07-12 12:22 | MHC.OFFWIV ---
Intake Vital Signs 07/12/25 12:22 Height 5 ft 9 in Weight 197 lb BMI 29.1 BP 112/60 Blood Pressure Location Rt brachial Position Sitting Pulse 71 Pulse Source Pulse Oximeter Temp 98.8 F Temp Source Oral Pulse Oximetry (%) 96 Oxygen Delivery Method Room Air Intake Visit Reasons: ep diverticulitis flare up Intake Note: pt presents with LLQ & RUQ sharp pains with constipation- flaring for 3 days Patient Tobacco Use Status: Former Tobacco user Allergies No Known Allergies (No Known Allergies*) Allergy (Verified 07/12/25 12:24) Do you need a note to return to daycare/school/sports/work: No HPI HPI Comments History of Present Illness Details History of Present Illness - The patient is a 64-year-old male presenting with abdominal pain and tenderness x 3 days. - Reports tenderness in the left lower quadrant with pain upon palpation. - History of diverticulosis diagnosed during a colonoscopy in 2021. - Previous severe abdominal pain led to hospitalization and treatment with morphine for divertiulitis - Currently on a bland diet and consuming liquids to manage symptoms. - Constipation with no fevers, no bloody or black stools Physical Exam General: Cooperative, healthy appearing, comfortable, no acute distress and well developed Orientation: Patient oriented x3 Limitations: No limitations Head: Normal to inspection Ears: Hearing grossly normal bilaterally Nose: Normal External nose present Face and sinus: Normal facial exam Eyes: Appearance normal, both eyes and all related structures Neck: Normal visual inspection and Yes full ROM Respiratory: Normal respiratory effort and able to speak in complete sentences. GI: TTP LLQ, otherwise normal Skin: No rashes or lesions noted Neuro: Patient oriented x3 Extremities: Normal to inspection PFSH Medical History Fatty liver disease, nonalcoholic Pulmonary nodules Coronary artery disease Bilateral cataracts BOY on CPAP History of diverticulitis Surgical History S/P coronary artery stent placement Hx of cataract surgery History of colonoscopy History of sigmoidoscopy History of inguinal hernia repair Family History Father CHF (congestive heart failure) CVD (cardiovascular disease) Mother Diabetes Son Down syndrome Brother Myocardial infarction Other Mental health disorder Social History 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:: , 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, 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 Housing: House Are you a primary dog daycare provider to a significant other at home: No Do you presently have visiting nurse or other home services: No Alcohol intake: current Alcohol intake frequency: does not drink Alcohol type: beer Patient Tobacco Use Status: Former Tobacco user Tobacco use type: Cigarette e-Cigarette/Vaping Use: Never Used Second Hand Smoke Exposure: Yes Advance Directives Date on File: 01/27/25 service: No Current occupational status: employed 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 Cognitive needs: No Hearing needs: No Vision needs: Yes (glasses) Review of Systems Const All systems reviewed & are unremarkable except as noted in HPI and below Physical Exam Vital Signs: Last Vital Signs Temp 98.8 F 07/12/25 12:22 Pulse 71 07/12/25 12:22 BP 112/60 07/12/25 12:22 Pulse Ox 96 07/12/25 12:22 Oxygen Delivery Method Room Air 07/12/25 12:22 BMI result Body Mass Index 29.1 Assessment & Plan Assessment & Plan (1) Acute diverticulitis: Code(s): K57.92 - Diverticulitis of intestine, part unspecified, without perforation or abscess without bleeding Plan: Patient was informed and verbally consented to the use of an ambient scribe for clinic note documentation during this visit. Diverticulitis - VSS, pt well appearing, TTP LLQ, likely diverticulitis - Treat with antibiotics, specifically Augmentin, for 10 days. - Continue a bland diet and monitor symptoms. - Seek emergency care if symptoms worsen or if you develop a fever. Medications: New amoxicillin-pot clavulanate 875-125 mg 1 tab PO Q12H 20 tabs 0RF 10 days Coding Level of Care Code Est Pt Level 3 (86253) Diagnoses Acute diverticulitis K57.92
== END 2025-07-12 12:44 | disposition home or self-care (01) ==
PROVIDERS: PCP Internal Medicine; Visit Provider Physician Assistant
DX: K57.92 Diverticulitis of intestine, part unspecified, without perforation or abscess without bleeding (principal)

== ENCOUNTER → 2025-07-12 11:34 | Outpatient (BNVA) | payer OTHER, SELFPAY | PROVIDERS: PCP Internal Medicine; Visit Provider Physician Assistant | DX: R10.32 Left lower quadrant pain (principal); R10.11 Right upper quadrant pain; K59.00 Constipation, unspecified | CPT/HCPCS: 99212 ==